=== PATIENT | male | born 1955 | race Caucasian/White ===

== ENCOUNTER → 2022-08-08 13:52 | Outpatient (CLI) | payer OTHER, SELFPAY ==
--- NOTE | 2022-08-08 13:55 | DI.RAD.S_ITS ---
PROCEDURE: XR KNEE LT 3V INDICATIONS: Chronic anterior left knee pain TECHNIQUE: 3 views of the knee were acquired. COMPARISON: None. FINDINGS: Bones: No fractures or dislocations. No suspicious bony lesions. There is mild tricompartmental periarticular osteophyte formation. Soft tissues: No joint effusion. No suspicious soft tissue calcifications. IMPRESSION: Osteoarthritis. No acute fracture. No osseous lesion. If symptoms and/or clinical suspicion for pathology persist, further assessment with repeat, or advanced imaging (e.g., CT, MRI, or bone scan) may be helpful for further assessment. Dictated by: Maxi Goetz M.D. on 08/08/2022 at 14:59 Transcribed by: DILLAN on 08/08/2022 at 14:59 Approved by: Maxi Goetz M.D. on 08/08/2022 at 16:49
== END ==
PROVIDERS: PCP Family Medicine; Referring Provider Family Medicine; Visit Provider Family Medicine
DX: M22.42 Chondromalacia patellae, left knee (principal); M17.12 Unilateral primary osteoarthritis, left knee
CPT/HCPCS: 73562

== ENCOUNTER → 2022-11-03 11:41 | Outpatient (CLI) | payer OTHER, SELFPAY ==
[2022-11-03 13:56] LABS: COVID19 -Nasal RAPID Negative (Negative)
== END ==
PROVIDERS: PCP Family Medicine; Visit Provider Surgery
DX: Z01.812 Encounter for preprocedural laboratory examination (principal); Z20.822 Contact with and (suspected) exposure to COVID-19
CPT/HCPCS: 87635; C9803

== ENCOUNTER 2022-11-04 08:41 | Day surgery (SDC) | payer OTHER, SELFPAY ==
--- NOTE | 2022-11-04 | PATH_ITS ---
[facility] Accession Number: [id number] No. of containers..01 Tissue . 01 Material submitted: . colon - TRANSVERSE 90CM . 01 Diagnosis: Transverse Colon, 90 cm, Biopsy: Tubulovillous adenoma. No evidence of malignancy or high-grade dysplasia. [facility] 11/06/2022 1022 Local . 01 Electronically signed: . Holley Womack MD, Pathologist NPI- [id number] . 01 Gross description: . TRANSVERSE 90CM: Received in formalin are 4 fragment(s) of flores, soft tissue measuring 0.7 x 0.3 x 0.2 cm to 0.2 x 0.2 x 0.1 cm submitted entirely in 1 cassette(s) /CPE 11/05/2022 0947 Local . 01 Pathologist provided ICD-10: D12.3 . 01 CPT . 155740 Specimen Comment: A courtesy copy of this report has been sent to [phone] Performed at: 01 [facility] [address] [place] [address], [place], [place] [id number] MD True Calvillo MD Phone: [phone]
[2022-11-04 09:16] VITALS: BP 138/85; PULSE 100; RESP 24; TEMP 36.1; O2SAT 98; BMI 38.9
[2022-11-04] MEDS: LACTATED RINGERS 1,000 ML 42 ML IV (09:25)
--- NOTE | 2022-11-04 09:46 | P.HP_ITS ---
History of Present Illness History of Present Illness Date Patient Seen: 11/04/22 Time Patient Seen: 09:50 Chief complaint: COLONOSCOPY Narrative: The patient presents for colorectal screening. Last colonoscopy 6 years ago significant for benign polyps.. No personal or family history of colon cancer. On further history denies any recent gastrointestinal symptoms. No nausea, vomiting, abdominal pain, loss of appetite, unexplained weight loss, change in bowel habits, diarrhea, constipation, melena, hematochezia, or bright red blood per rectum. Patient History Medical History Chondromalacia, patella History of colon polyps Hypertension Left knee pain Sprain of right hip Family & Social History Social History: household members spouse Tobacco & Substance use: Smoking Status Former smoker alcohol intake frequency holiday/special occasion Substance Use Type does not use Meds Home Medications and Allergies Home Medications Medication Instructions Recorded Confirmed Type azelastine 137 mcg (0.1 %) nasal 1 spray intranasal BID 05/06/22 11/04/22 History spray aerosol losartan 50 mg tablet 50 mg PO DAILY 05/06/22 11/04/22 History aspirin 81 mg tablet,delayed 81 mg PO DAILY 08/08/22 11/04/22 History release (Adult Low Dose Aspirin) hydrochlorothiazide 25 mg tablet 25 mg PO DAILY #90 tabs 09/25/22 11/04/22 Rx Allergies Allergy/AdvReac Type Severity Reaction Status Date / Time oxycodone Allergy Intermediate skin Verified 11/04/22 09:13 crawling latex Allergy Mild SKIN Verified 11/04/22 09:13 IRRITATION Exam Vital Signs (past 8 hours): - 11/04/22 09:16 Temperature 96.9 F L Pulse Rate 100 H Respiratory Rate 24 Blood Pressure 138/85 Pulse Oximetry 98 Oxygen Delivery Method Room Air Oxygen Delivery Method Room Air Narrative Exam Narrative: General adult male alert oriented no acute distress Assessment & Plan Assessment & Plan narrative: The patient requires colorectal screening and colonoscopy is recommended. Tech nical details were discussed. Risks, benefits, alternatives explained. Risks including but not limited to myocardial infarction, aspiration, bleeding, pain, missed lesion, incomplete examination, need for further radiographic studies, colonic perforation, and need for major abdominal surgery were discussed. All questions were answered to their satisfaction, and they are in agreement with this plan. Time Spent With Patient Critical Care time: I spent a total of [] minutes of critical care time on this patient's care to day; this time is exclusive of procedural time.
--- NOTE | 2022-11-04 10:01 | PM.OP.COLON ---
Operative Date/Time/Diagnoses Date of procedure: 11/04/22 Time of procedure: 10:01 Pre-op diagnosis: Personal history of colonic polyps Post-op diagnosis: same Procedure & Clinicians Study performed: Colonoscopy Same procedure as scheduled: Yes Indications: Personal history of colonic polyps Surgeon: Aiden Hines Procedure Notes Procedure in detail: The history and physical was performed/updated and the patient is ASA class is 2. The procedure was discussed in detail with the patient. Potential risks complications including infection, bleeding, missed diagnosis, perforation, need for surgery, and were explained. Their questions were answered and informed consent was obtained. Patient was brought to the procedure room and placed standard monitoring equipment. The patient's vital signs were monitored continuously throughout the entire procedure. Prior to starting time-out was performed. The patient was placed in the left lateral recumbent position. Procedural sedation was administered by anesthesia. Examination began with a thorough inspection of the perianal area there was no evidence of fissures, fistulae, external hemorrhoids or cutaneous malignancy. The colonoscopy scope was then placed into the anal canal and was advanced to the cecum, which was identified by the ileocecal valve, the appendiceal orifice and the confluence of the taenia. The scope was then slowly withdrawn examining colon thoroughly in all directions, irrigating it of any residual stool. FINDINGS 1. Transverse colon 1 cm flat polyp deep within a mucosal fold removed with hot snare. Base of the polyp could not be entirely removed and will require surveillance. 2 mL of ink were injected into the submucosa distal to the lesion 2. Sigmoid extensive diverticulosis The patient tolerated the procedure well. They will be discharged once criteria are met. The prep was of good/excellent quality. The withdrawl time was 21 minutes. Specimen(s): other (Transverse colonic polyp) Complications: none Post-procedure Recommendations: High fiber diet Plan for aftercare: Follow-up 6 months Disposition: same day surgery
[2022-11-04 10:40] VITALS: BP 124/91; PULSE 109; RESP 25; TEMP 36.1; O2SAT 94
[2022-11-04 10:45] VITALS: BP 126/90; PULSE 111; RESP 17; TEMP 36.1; O2SAT 96
[2022-11-04 10:52] VITALS: BP 126/84; PULSE 101; RESP 18; TEMP 36.2; O2SAT 97
== END 2022-11-04 11:05 | disposition home or self-care (01) ==
PROVIDERS: PCP Family Medicine; Referring Provider Surgery; Visit Provider Surgery
PROC: 0DJD8ZZ Inspection of Lower Intestinal Tract, Via Natural or Artificial Opening Endoscopic (ICD-10-PCS; CPT 45378; principal; 2022-11-04 09:45)
DX: Z12.11 Encounter for screening for malignant neoplasm of colon (principal); Z86.010 Personal history of colon polyps; K57.30 Diverticulosis of large intestine without perforation or abscess without bleeding; D12.3 Benign neoplasm of transverse colon
CPT/HCPCS: 45381; 45385; J2704

== ENCOUNTER → 2022-11-27 07:14 | Outpatient (CLI) | payer OTHER, SELFPAY ==
[2022-11-27 08:46] LABS: Alanine Aminotransferase 25 IU/L (<50); Albumin 4.1 g/dL (3.5-5.0); Albumin Globulin Ratio 1.6 (1.0-2.8); Alkaline Phosphatase 67 U/L (38-126); Aspartate Aminotransferase 23 IU/L (17-59); BUN Creatinine Ratio 25.8 (6-22); Bilirubin Total 0.9 mg/dL (0.2-1.3); Blood Urea Nitrogen 23 mg/dL (9-20); Calcium 9.4 mg/dL (8.4-10.2); Carbon Dioxide 30 mmol/L (22-32); Chloride 98 mmol/L (98-107); Cholesterol 188 mg/dL (140-199); Estimated Glomerular Filt Rate > 60 mL/min (>60); Globulin 2.6 g/dL (1.7-4.1); Glucose 96 mg/dL (80-110); HDL Cholesterol 53 mg/dL (40-60); HEMOLYSIS < 15 (0-50); LDL Cholesterol Calculated 116 mg/dL (<100); Potassium 4.1 mmol/L (3.4-5.1); Sodium 137 mmol/L (137-145); Total Protein 6.7 g/dL (6.3-8.2); Triglycerides 96 mg/dL (35-150)
[2022-11-27 09:18] LABS: Prostate Specific Antigen Scrn 0.945 ng/mL (0.1-4.0)
== END ==
PROVIDERS: PCP Family Medicine; Referring Provider Family Medicine; Visit Provider Family Medicine
DX: Z13.9 Encounter for screening, unspecified (principal); Z12.5 Encounter for screening for malignant neoplasm of prostate
CPT/HCPCS: 36415; 80053; 80061; G0103

== ENCOUNTER → 2023-02-23 07:15 | Outpatient (CLI) | payer OTHER, SELFPAY ==
--- NOTE | 2023-02-23 | DI.CT.S_ITS ---
PROCEDURE: CT SOFT TISSUE NECK WO CON INDICATIONS: Stridor TECHNIQUE: Non-contrast 3.0 mm axial sections acquired from the sella to the aortic arch. Additional oblique axial 3.0 mm sections acquired through the pharynx. 3 mm thick coronal and sagittal reformats were generated. For radiation dose reduction, the following was used: automated exposure control. COMPARISON: None. FINDINGS: Image quality: Excellent. Lymph nodes: No enlarged lymph nodes seen throughout the neck. Vessels: Non-opacified vessels appear normal in caliber. Neck spaces: There is subjective mild thickening of the soft tissues defining the left piriform sinus. The left piriformis sinuses somewhat effaced. The airway is narrowed by a lesion versus mucous which appears to arise from the left side of the larynx at the level of the true and false vocal cords. The vocal cords, false vocal cords, pyriform sinuses, epiglottis, vallecula, and tongue base all appear normal. Extramucosal spaces appear unremarkable. Glands: The parotid and submandibular glands appear normal, without stones. Thyroid gland is unremarkable . Miscellaneous: Visualized brain and orbits appear normal. Lung apices appear clear. Superficial soft tissues appear normal. Severe cervical spondylosis with significant multilevel bilateral bony foraminal narrowing, spanning from C3-C4 through C6-C7. There is canal stenosis at C5-C6. IMPRESSION: 1. Subjective mild thickening of the soft tissues defining the left piriformis sinus. The left piriformis sinus is somewhat effaced. This is of uncertain significance. 2. There is narrowing of the lumen dural airway at the level of the true and false vocal cords from a lesion that appears to arise from the left lateral wall of the larynx. Question mucous versus mass. 3. Severe cervical spondylosis with multilevel bilateral foraminal narrowing and canal stenosis at C5-C6. 4. Otherwise unremarkable noncontrast CT of the soft tissues of the neck. Comment: Recommend direct visualization if this has not yet been performed. Dictated by: Irving Yi M.D. on 02/23/2023 at 11:37 Approved by: Irving Yi M.D. on 02/23/2023 at 11:58
== END ==
PROVIDERS: PCP Family Medicine; Referring Provider Internal Medicine Endocrinology, Diabetes & Metabolism; Visit Provider Internal Medicine Endocrinology, Diabetes & Metabolism
DX: R06.1 Stridor (principal); R06.09 Other forms of dyspnea; M47.812 Spondylosis without myelopathy or radiculopathy, cervical region; M48.02 Spinal stenosis, cervical region
CPT/HCPCS: 70490

== ENCOUNTER 2023-04-28 06:53 | Day surgery (SDC) | payer OTHER, SELFPAY ==
[2023-04-28 07:11] VITALS: BMI 37.8
[2023-04-28] MEDS: LACTATED RINGERS 1,000 ML 200 ML IV (07:16)
[2023-04-28 07:17] VITALS: BP 139/88; PULSE 95; RESP 22; TEMP 35.8; O2SAT 96
--- NOTE | 2023-04-28 07:42 | PM.HP.1 ---
History of Present Illness History of Present Illness Date Patient Seen: 04/28/23 Time Patient Seen: 07:42 Chief complaint: Screening Colonoscopy Narrative: 67-year-old man who had a colonoscopy 6 months which demonstrated a large tubular adenoma transverse colonic polyp which was resected in piecemeal fashion. He is here today for a re-screening to ensure complete polyp resection. [facility] Medical History BPH (benign prostatic hyperplasia) Chondromalacia, patella Chronic stridor History of colon polyps Hypertension Left knee pain Sprain of right hip Social History household members: spouse Smoking Status: Former smoker alcohol intake: current Meds Home Medications and Allergies Home Medications Medication Instructions Recorded Confirmed Type azelastine 137 mcg (0.1 %) nasal 1 spray intranasal BID 05/06/22 04/28/23 History spray aerosol aspirin 81 mg tablet,delayed 81 mg PO DAILY 08/08/22 04/28/23 History release (Adult Low Dose Aspirin) hydrochlorothiazide 25 mg tablet 25 mg PO DAILY #90 tabs 09/25/22 04/28/23 Rx losartan 50 mg tablet 50 mg PO DAILY #90 tabs 01/05/23 04/28/23 Rx tamsulosin 0.4 mg capsule 0.4 mg PO BEDTIME #90 caps 01/20/23 04/28/23 Rx Allergies Allergy/AdvReac Type Severity Reaction Status Date / Time oxycodone Allergy Intermediate skin Verified 04/28/23 07:08 crawling latex Allergy Mild SKIN Verified 04/28/23 07:08 IRRITATION Exam Vital Signs (past 8 hours): - 04/28/23 07:17 Temperature 96.4 F L Pulse Rate 95 H Respiratory Rate 22 Blood Pressure 139/88 Pulse Oximetry 96 Oxygen Delivery Method Room Air Oxygen Delivery Method Room Air Narrative Exam Narrative: General adult man alert oriented no acute distress Abdomen soft nontender nondistended Assessment & Plan Assessment and plan (1) History of colon polyps: Status: Acute Assessment & Plan narrative: 67-year-old man history of tubular adenoma resected in piecemeal fashion 6 months ago here today for recheck to ensure complete colonic excision. Overview of the operation was discussed. Operative risks hemorrhage, intestinal injury, missed diagnosis were discussed. Questions have been answered he is in agreement with this plan
--- NOTE | 2023-04-28 07:45 | PM.OP.COLON ---
Operative Date/Time/Diagnoses Date of procedure: 04/28/23 Time of procedure: 08:12 Pre-op diagnosis: Personal history of colonic polyp Post-op diagnosis: same Procedure & Clinicians Study performed: Colonoscopy Same procedure as scheduled: Yes Indications: 67-year-old man had a piecemeal resection of a large tubular adenoma 6 months ago here for re-evaluation to ensure complete polyp resection Procedure Notes Procedure in detail: The history and physical was performed/updated and the patient is ASA class is 2. The procedure was discussed in detail with the patient. Potential risks complications including infection, bleeding, missed diagnosis, perforation, need for surgery, and were explained. Their questions were answered and informed consent was obtained. Patient was brought to the procedure room and placed standard monitoring equipment. The patient's vital signs were monitored continuously throughout the entire procedure. Prior to starting time-out was performed. The patient was placed in the left lateral recumbent position. Procedural sedation was administered by anesthesia. Examination began with a thorough inspection of the perianal area there was no evidence of fissures, fistulae, external hemorrhoids or cutaneous malignancy. The colonoscopy scope was then placed into the anal canal and was advanced to the cecum, which was identified by the ileocecal valve, the appendiceal orifice and the confluence of the taenia. The scope was then slowly withdrawn examining colon thoroughly in all directions, irrigating it of any residual stool. No masses or polyps within the colon. Sigmoid diverticulosis The patient tolerated the procedure well. They will be discharged once criteria are met. The prep was of good/excellent quality. The withdrawl time was 7 minutes. Impression: No residual polyp Post-procedure Recommendations: Colonoscopy in 5 years Disposition: same day surgery
[2023-04-28 08:08] VITALS: BP 147/101; PULSE 89; RESP 23; TEMP 36.4; O2SAT 96
[2023-04-28 08:13] VITALS: BP 134/100; PULSE 85; RESP 14; O2SAT 94
[2023-04-28 08:19] VITALS: BP 136/100; PULSE 89; RESP 12; O2SAT 94
[2023-04-28 08:21] VITALS: BP 130/96; PULSE 88; RESP 10; TEMP 36.5; O2SAT 94
== END 2023-04-28 08:34 | disposition home or self-care (01) ==
PROVIDERS: PCP Family Medicine; Referring Provider Surgery; Visit Provider Surgery
PROC: 0DJD8ZZ Inspection of Lower Intestinal Tract, Via Natural or Artificial Opening Endoscopic (ICD-10-PCS; CPT 45378; principal; 2023-04-28 07:45)
DX: Z12.11 Encounter for screening for malignant neoplasm of colon (principal); Z86.010 Personal history of colon polyps; K57.30 Diverticulosis of large intestine without perforation or abscess without bleeding
CPT/HCPCS: 45378

== ENCOUNTER → 2023-07-07 06:43 | Outpatient (CLI) | payer OTHER, SELFPAY ==
--- NOTE | 2023-07-07 06:44 | DI.US.S_ITS ---
PROCEDURE: US ABD AORTA ANEURYSM SCREEN INDICATIONS: Screening TECHNIQUE: Real time scanning was performed of the aorta and iliac arteries, with image documentation. COMPARISON: None. FINDINGS: Aorta: Proximal aortic diameter measures 2.7 cm. Mid-aorta measures 2.0 cm. Distal aortic diameter is 1.9 cm. Iliac arteries: Right common iliac artery measures 1.5 cm. Left common iliac artery measures 1.3 cm. IMPRESSION: No abdominal aortic aneurysm. Proximal ectatic portion. Consider 5 year follow-up. Dictated by: Alex Lockett M.D. on 07/07/2023 at 9:49 Approved by: Alex Lockett M.D. on 07/07/2023 at 9:50
== END ==
PROVIDERS: PCP Family Medicine; Referring Provider Family Medicine; Visit Provider Family Medicine
DX: Z13.6 Encounter for screening for cardiovascular disorders (principal); I10 Essential (primary) hypertension; Z87.891 Personal history of nicotine dependence
CPT/HCPCS: 76706

== ENCOUNTER → 2023-09-18 07:51 | Outpatient (CLI) | payer OTHER, SELFPAY ==
[2023-09-18 08:53] LABS: Add Manual Diff / Slide Review NO; Basophils Absolute Auto 100 /uL (0-100); Basophils Percent Auto 0.8 % (0-2); Eosinophils Absolute Auto 200 /uL (0-450); Eosinophils Percent Auto 3.3 % (2-4); Hematocrit 45.6 % (41-53); Hemoglobin 15.9 g/dL (13.5-17.5); Lymphocytes Absolute Auto 1700 /uL (1100-4500); Lymphocytes Percent Auto 27.5 % (25-40); Mean Corpuscular HGB Conc 34.9 % (30-36); Mean Corpuscular Hemoglobin 31.3 PG (26-34); Mean Corpuscular Volume 89.6 fL (80-100); Monocytes Absolute Auto 500 /uL (0-900); Monocytes Percent Auto 7.9 % (3-14); Neutrophils Absolute Auto 3800 /uL (1500-7000); Neutrophils Percent Auto 60.5 % (50-75); Platelet Count 285 X10^3/uL (150-400); White Blood Cell Count 6.3 X10^3/uL (4.5-11.0)
[2023-09-18 09:21] LABS: Alanine Aminotransferase 26 IU/L (<50); Albumin Globulin Ratio 1.5 (1.0-2.8); Alkaline Phosphatase 65 U/L (38-126); Aspartate Aminotransferase 23 IU/L (17-59); BUN Creatinine Ratio 25.3 (6-22); Bilirubin Total 0.6 mg/dL (0.2-1.3); Blood Urea Nitrogen 23 mg/dL (9-20); Calcium 9.1 mg/dL (8.4-10.2); Carbon Dioxide 25 mmol/L (22-32); Chloride 101 mmol/L (98-107); Estimated Glomerular Filt Rate > 60 mL/min (>60); Globulin 2.7 g/dL (1.7-4.1); Glucose 104 mg/dL (80-110); HEMOLYSIS < 15 (0-50); Potassium 4.1 mmol/L (3.4-5.1); Sodium 134 mmol/L (137-145); Total Protein 6.7 g/dL (6.3-8.2)
[2023-09-18 09:47] LABS: Prostate Specific Antigen Scrn 0.784 ng/mL (0.1-4.0)
== END ==
PROVIDERS: PCP Family Medicine; Referring Provider Family Medicine; Visit Provider Family Medicine
DX: N40.0 Benign prostatic hyperplasia without lower urinary tract symptoms (principal); I10 Essential (primary) hypertension; Z12.5 Encounter for screening for malignant neoplasm of prostate
CPT/HCPCS: 36415; 80053; 85025; G0103

== ENCOUNTER 2024-07-26 08:15 | Outpatient (RCR) | payer OTHER, SELFPAY ==
--- NOTE | 2024-04-12 12:06 | PT.OPPOC ---
Physical, Occupational & Speech Therapy At [facility] Current Diagnoses Pain in right hip (04/12/24) Pain in right thigh (04/12/24) Pain in left thigh (04/12/24) Visit Care Team Role Provider Type Danny Marti DO Attending Provider Physician Family Provider Primary Care Provider Referring Provider Specialty: Family Practice Address: [address] [place] [address], [facility] Email: [email or web address] Plan Of Care PT-OP-T Assessment and Plan Start: 04/11/24 13:35 Freq: Status: Active Protocol: Document 04/12/24 07:25 MB (Rec: 04/12/24 08:02 MB [id number]) Physical Therapy Assessment Rehab Potential Rehabilitation Potential Fair Evaluation Complexity Number of Personal Factors/Comorbidities 1-2 Number of Body Systems Impaired 3 Clinical Presentation at Evaluation Evolving Impairments Impairments Activity Tolerance,Balance, Functional Activities, Functional Mobility,Gait,Pain, Posture,ROM,Soft Tissue Mobility,Strength Goals 3 Impairment Lack of PT HEP Ointment Mill Tender Goal (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 LTG Duration 8 weeks 2 Impairment Decreased right hip strength Senior Living Goal (LTG) Pt will present with 5/5 right hip flexion and abduction strength to improve functional strength, balance and gait. LTG Duration 8 weeks 1 Impairment LEF score is 39/80 Ointment Mill Tender Goal (LTG) Pt will present with improved LEF score to no more than 20/ 80 to reflect improved pain and function. LTG Duration 8 weeks Assessment Summary Assessment Pt is a 68 y/o male who reports significant lateral right hip, quad and hamstring discomfort after two trail bike rides. 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 He verbalizes that he does not get up as often as he should during long work days and he is mostly sitting. Standing posture reveals increased body mass, anterior tilt pelvis, pelvic obliquities with right iliac crest higher than the left and supine posture reveals neither posterior leg touching the mat. Scour right hip is negative and has mildly less passive right hip IR compared to left but overall, his passive hip movement is not very limited. He is minor right hip flexion and abduction MMT changes and c/o lateral right hip pain near insertion of TFL and ITB with MMT right hip and knee. Pt will benefit from PT to improve pelvic alignment, flexibility, strength and balance. Of note, pt has aqua ablation scheduled on 05/03/24 and unsure what surgeon will allow post-op as far as PT. PT ed pt that this PT is not a pelvic floor PT and that this may be beneficial in the future. Pt is going to call surgeon about post-procedure recommendations. Physical Therapy Plan Frequency and Duration Frequency of Treatment 1-2x/wk Duration of treatment (weeks) 8 Plan of Care Start Date 04/12/24 Plan of Care End Date 06/12/24 Therapeutic Interventions Therapeutic Interventions Balance Training,Canalithic Repositioning,Gait Training, Home Exercise Program,Joint Mobilizations,Manual Therapy, Neuromuscular Re-education, Patient/Caregiver Education, Self-Care/Home Management, Sensory Integration,Soft Tissue Mobilization,Taping, Therapeutic Activities, Therapeutic Exercises Modalities Cold Pack/Ice Massage,Electric Stimulation,Hot Packs, Ultrasound Next Visit Focus/Plan Next Note Type Treatment Note Next Visit Plan Review pelvic realignment exercises, B[place]yko breathing, progressive flexibility Plan of Care Dates Plan of Care Start Date 04/12/24 Plan of Care End Date 06/12/24 Electronically Signed by: Claudia Acevedo PT 04/12/24 7001 If you are in agreement with this Plan of Care, please return a signed and dated copy. I have reviewed this Plan of Care and certify that the skilled therapy services above are required to meet the patient?s needs. Physician Signature Date Printed Name and Credentials Clinical Instructor Signature Printed Name and Credentials
--- NOTE | 2024-04-12 12:06 | PT.OIE ---
Current Diagnoses Pain in right hip (04/12/24) Pain in right thigh (04/12/24) Pain in left thigh (04/12/24) Past Medical History (Last Updated 03/29/24 @ 15:41 by Jaime Mcneill MD) Achilles tendinitis of left lower extremity Benign prostatic hyperplasia with lower urinary tract symptoms BPH (benign prostatic hyperplasia) Chondromalacia, patella Chronic stridor Colon polyps History of colon polyps History of IHSS Hypertension Left knee pain Nocturia more than twice per night Secondhand smoke exposure Skin abnormalities Slow urinary stream Sprain of right hip Weak urinary stream Well adult exam Past Surgical History (Last Updated 03/29/24 @ 15:41 by Jaime Mcneill MD) Status post inguinal ligation of varicocele Visit Care Team Role Provider Type Danny Marti DO Attending Provider Physician Family Provider Primary Care Provider Referring Provider Specialty: Family Practice Address: [address] [place] [address], [facility] Email: [email or web address] Physical Therapy Initial Evaluation PT-OP-A Visit Information Start: 04/11/24 13:35 Freq: Status: Active Protocol: Document 04/12/24 07:25 MB (Rec: 04/12/24 08:02 MB [id number]) Out-Patient Physical Therapy Visit Information Visit Information Visit Type Initial Evaluation Visit Note Gonzales, 11/25 before prog note or by 05/13/24 15 visits for this referral Visit Start Time 07:25 Visit Stop Time 08:10 Visit Number 1 Number of MENTAL HEALTH ASSISTANT Visits 0 Evaluation Information Evaluation Date 04/12/24 PT-OP-B Current Condition Start: 04/11/24 13:35 Freq: Status: Active Protocol: Document 04/12/24 07:25 MB (Rec: 04/12/24 08:02 MB [id number]) Current Condition History of Current Condition Onset Date 03/19/24 Current Complaints [place] in [place], got right hip pain History of Current Condition Pt reports that he was trail riding and he got increased pain. His long-term goal is flexibility and strength. He would like to get back to ball room dancing. 10 years ago, he had a partiall achilles tear. He was carrying suitcases up the stairs and it tore. He did not have surgery , he was put in a boot and then had an extensive course of PT. 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 He had a special laser procedure for this 1 year ago. He could not exert himself a lot until he had surgery. He has been biking once a week in the winter and 3x/wk in the summer and he likes downhill skiing as well. Pt with BPH and urinary symptoms and he is currently being treated for this. He has not yet received pelvic floor PT. He has aqua ablation on . He was told not to bike for 6 weeks after and no heavy lifting for two weeks. Pt reports 6/10 lateral and anterior right hip pain and 4/ 10 posterolateral right hip pain over hamstrings. He reports anterior right leg pain feels like the quads. He reports that after second bike ride, he couldn't walk because hip couldn't bear weight. Pt presents with wet vocal tone. 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 Pt denies numbness and tingling. Pt sleeps badly. He has a foam mattress. He has a jasson size bed and sleeps with . He wakes up 2-3x/night to urinate. PT-OP-C Subjective Start: 04/11/24 13:35 Freq: Status: Active Protocol: Document 04/12/24 07:25 MB (Rec: 04/12/24 08:02 MB [id number]) OP-PT Subjective Patient Comments Patient Comments Decrease acute pain and for the long-term, improve flexibility and strength Patient Questionnaires Lower Extremity Functional Scale LEFS Score 39 LEFS Impairment 40 to 59% Impaired (Score 32- 47) PT-OP-G Mobility & Gait Start: 04/11/24 13:35 Freq: Status: Active Protocol: Document 04/12/24 07:25 MB (Rec: 04/12/24 08:02 MB [id number]) OP Gait Assessment Comments Gait Comments Decreased step-length and hip movement right leg with gait, antalgic gait and decreased right hip flexion PT-OP-J Posture/Palpation/Skin Start: 04/11/24 13:35 Freq: Status: Active Protocol: Document 04/12/24 07:25 MB (Rec: 04/12/24 08:02 MB [id number]) Posture Evaluation Comments Posture Comments Standing posture: forward flexion at hips, rounded shoulders, flat spine, mild convexity or hypertrophy to the right in lumbar area, right iliac crest is higher than the left. More overpronation left foot than the right in standing and increased Azael angle on the right compared to left. Anterior tilt pelvis and increased abdominal distention forward. In supine, neither posterior knee/leg touch the mat and this may be d/t a combination of anterior pelvis, knee degenerative changes and hips, pt reports discomfort lateral hip. B SLR grossly 60 deg. PT-OP-K Range of Motion Start: 04/11/24 13:35 Freq: Status: Active Protocol: Document 04/12/24 07:25 MB (Rec: 04/12/24 12:05 MB [id number]) Hip Goniometric Range of Motion Hip ROM Limitations Comments Supine passive hip ER and IR normal on the left and mildly reduced passive IR on the right Scour right is negative Knee Goniometric Range of Motion Knee ROM Limitations Comments Pt may have some degenerative changes in B knees vs anterior tilt pelvis as neither posterior leg touches the legs in supine PT-OP-M Strength Start: 04/11/24 13:35 Freq: Status: Active Protocol: Document 04/12/24 07:25 MB (Rec: 04/12/24 12:05 MB [id number]) Hip Strength Hip Manual Muscle Testing Left Flexion (L2) 5 Normal Extension (S1) 5 Normal Abduction 5 Normal Right Flexion (L2) 4+ Good+ Extension (S1) 5 Normal Abduction 4+ Good+ Comments Right hip lateral pain with MMT Knee Strength Knee Manual Muscle Testing Bilateral Flexion (S2) 5 Normal Extension (L3) 5 Normal Comments Right hip lateral pain with MMT extension Ankle/Foot Strength Ankle and Foot Manual Muscle Testing Bilateral Dorsiflexion (L4) 5 Normal Toe Strength Toe Manual Muscle Testing Left Great Toe Extension 5 Normal Right Great Toe Extension 5 Normal PT-OP-Q Treatments Start: 04/11/24 13:35 Freq: Status: Active Protocol: Document 04/12/24 07:25 MB (Rec: 04/12/24 12:05 MB [id number]) Therapeutic Exercises Supine Exercises Pelvic realignment exercises Side bilateral Equipment Used Blue ball Reps/Minutes 5 reps, 3 sec hold all exercises in order Comments Feet together ball squeeze iso , knee opp ankle iso, knee press down iso Self-Care/Home Management Treatment Education Patient Education Body Mechanics,Home Exercise Program,Joint Protection,Pain Management,Posture Other Education Ed pt in log roll technique, use of pillow under knees for supine lying and sleeping and between knees for side lying, ed pt in benefits of icing and to consider walking rather than bike riding at this time, ed pt to consider sit to stand desk/changing desk ergonomics at home and to get up more regularly PT-OP-T Assessment and Plan Start: 04/11/24 13:35 Freq: Status: Active Protocol: Document 04/12/24 07:25 MB (Rec: 04/12/24 08:02 MB [id number]) Physical Therapy Assessment Rehab Potential Rehabilitation Potential Fair Evaluation Complexity Number of Personal Factors/Comorbidities 1-2 Number of Body Systems Impaired 3 Clinical Presentation at Evaluation Evolving Impairments Impairments Activity Tolerance,Balance, Functional Activities, Functional Mobility,Gait,Pain, Posture,ROM,Soft Tissue Mobility,Strength Goals 3 Impairment Lack of PT HEP Usp Goal (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 LTG Duration 8 weeks 2 Impairment Decreased right hip strength Usp Goal (LTG) Pt will present with 5/5 right hip flexion and abduction strength to improve functional strength, balance and gait. LTG Duration 8 weeks 1 Impairment LEF score is 39/80 Senior Marketing Manager Goal (LTG) Pt will present with improved LEF score to no more than 20/ 80 to reflect improved pain and function. LTG Duration 8 weeks Assessment Summary Assessment Pt is a 68 y/o male who reports significant lateral right hip, quad and hamstring discomfort after two trail bike rides. 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 He verbalizes that he does not get up as often as he should during long work days and he is mostly sitting. Standing posture reveals increased body mass, anterior tilt pelvis, pelvic obliquities with right iliac crest higher than the left and supine posture reveals neither posterior leg touching the mat. Scour right hip is negative and has mildly less passive right hip IR compared to left but overall, his passive hip movement is not very limited. He is minor right hip flexion and abduction MMT changes and c/o lateral right hip pain near insertion of TFL and ITB with MMT right hip and knee. Pt will benefit from PT to improve pelvic alignment, flexibility, strength and balance. Of note, pt has aqua ablation scheduled on 05/03/24 and unsure what surgeon will allow post-op as far as PT. PT ed pt that this PT is not a pelvic floor PT and that this may be beneficial in the future. Pt is going to call surgeon about post-procedure recommendations. Physical Therapy Plan Frequency and Duration Frequency of Treatment 1-2x/wk Duration of treatment (weeks) 8 Plan of Care Start Date 04/12/24 Plan of Care End Date 06/12/24 Therapeutic Interventions Therapeutic Interventions Balance Training,Canalithic Repositioning,Gait Training, Home Exercise Program,Joint Mobilizations,Manual Therapy, Neuromuscular Re-education, Patient/Caregiver Education, Self-Care/Home Management, Sensory Integration,Soft Tissue Mobilization,Taping, Therapeutic Activities, Therapeutic Exercises Modalities Cold Pack/Ice Massage,Electric Stimulation,Hot Packs, Ultrasound Next Visit Focus/Plan Next Note Type Treatment Note Next Visit Plan Review pelvic realignment exercises, Buteyko breathing, progressive flexibility
--- NOTE | 2024-04-26 08:14 | PT.OTN ---
Current Diagnoses Pain in right hip (04/26/24) Pain in right thigh (04/26/24) Pain in left thigh (04/26/24) Physical Therapy Treatment Note PT-OP-A Visit Information Start: 04/11/24 13:35 Freq: Status: Active Protocol: Document 04/26/24 07:33 MB (Rec: 04/26/24 08:13 MB [id number]) Out-Patient Physical Therapy Visit Information Visit Information Visit Type Treatment Note Visit Note Christian, 12/26 before prog note or by 05/13/24 15 visits for this referral Visit Start Time 07:33 Visit Stop Time 08:13 Visit Number 2 Number of REAL ESTATE AGENCY LICENSEE Visits 0 Evaluation Information Evaluation Date 04/12/24 Precautions Precautions Possible aqua ablation for BPH 05/03/24. Surgeon said he can con't with PT afterwards and should not bike for 6 weeks. PT will do re-eval on 05/17/24 if he undergoes procedure. PT-OP-B Current Condition Start: 04/11/24 13:35 Freq: Status: Active Protocol: Document 04/12/24 07:25 MB (Rec: 04/12/24 08:02 MB [id number]) Current Condition History of Current Condition Onset Date 03/19/24 Current Complaints [place] in [place], got right hip pain History of Current Condition Pt reports that he was trail riding and he got increased pain. His long-term goal is flexibility and strength. He would like to get back to [employer] room dancing. 10 years ago, he had a partiall achilles tear. He was carrying suitcases up the stairs and it tore. He did not have surgery , he was put in a boot and then had an extensive course of PT. 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 He had a special laser procedure for this 1 year ago. He could not exert himself a lot until he had surgery. He has been biking once a week in the winter and 3x/wk in the summer and he likes downhill skiing as well. Pt with BPH and urinary symptoms and he is currently being treated for this. He has not yet received pelvic floor PT. He has aqua ablation on . He was told not to bike for 6 weeks after and no heavy lifting for two weeks. Pt reports 6/10 lateral and anterior right hip pain and 4/ 10 posterolateral right hip pain over hamstrings. He reports anterior right leg pain feels like the quads. He reports that after second bike ride, he couldn't walk because hip couldn't bear weight. Pt presents with wet vocal tone. 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 Pt denies numbness and tingling. Pt sleeps badly. He has a foam mattress. He has a jasson size bed and sleeps with . He wakes up 2-3x/night to urinate. PT-OP-C Subjective Start: 04/11/24 13:35 Freq: Status: Active Protocol: Document 04/26/24 07:33 MB (Rec: 04/26/24 08:13 MB [id number]) OP-PT Subjective Patient Comments Patient Comments Pt has been resting off the bike since evaluation. He has been doing pelvic realignment exercises and walking. He is appealing deny for aqua ablation for BPH that would happen next week. Surgeon said he can con't with PT afterwards and should not bike for 6 weeks. PT-OP-G Mobility & Gait Start: 04/11/24 13:35 Freq: Status: Active Protocol: Document 04/12/24 07:25 MB (Rec: 04/12/24 08:02 MB [id number]) OP Gait Assessment Comments Gait Comments Decreased step-length and hip movement right leg with gait, antalgic gait and decreased right hip flexion PT-OP-J Posture/Palpation/Skin Start: 04/11/24 13:35 Freq: Status: Active Protocol: Document 04/12/24 07:25 MB (Rec: 04/12/24 08:02 MB [id number]) Posture Evaluation Comments Posture Comments Standing posture: forward flexion at hips, rounded shoulders, flat spine, mild convexity or hypertrophy to the right in lumbar area, right iliac crest is higher than the left. More overpronation left foot than the right in standing and increased Azael angle on the right compared to left. Anterior tilt pelvis and increased abdominal distention forward. In supine, neither posterior knee/leg touch the mat and this may be d/t a combination of anterior pelvis, knee degenerative changes and hips, pt reports discomfort lateral hip. B SLR grossly 60 deg. PT-OP-K Range of Motion Start: 04/11/24 13:35 Freq: Status: Active Protocol: Document 04/12/24 07:25 MB (Rec: 04/12/24 12:05 MB [id number]) Hip Goniometric Range of Motion Hip ROM Limitations Comments Supine passive hip ER and IR normal on the left and mildly reduced passive IR on the right Scour right is negative Knee Goniometric Range of Motion Knee ROM Limitations Comments Pt may have some degenerative changes in B knees vs anterior tilt pelvis as neither posterior leg touches the legs in supine PT-OP-M Strength Start: 04/11/24 13:35 Freq: Status: Active Protocol: Document 04/12/24 07:25 MB (Rec: 04/12/24 12:05 MB [id number]) Hip Strength Hip Manual Muscle Testing Left Flexion (L2) 5 Normal Extension (S1) 5 Normal Abduction 5 Normal Right Flexion (L2) 4+ Good+ Extension (S1) 5 Normal Abduction 4+ Good+ Comments Right hip lateral pain with MMT Knee Strength Knee Manual Muscle Testing Bilateral Flexion (S2) 5 Normal Extension (L3) 5 Normal Comments Right hip lateral pain with MMT extension Ankle/Foot Strength Ankle and Foot Manual Muscle Testing Bilateral Dorsiflexion (L4) 5 Normal Toe Strength Toe Manual Muscle Testing Left Great Toe Extension 5 Normal Right Great Toe Extension 5 Normal PT-OP-Q Treatments Start: 04/11/24 13:35 Freq: Status: Active Protocol: Document 04/26/24 07:33 MB (Rec: 04/26/24 08:13 MB [id number]) Therapeutic Exercises Supine Exercises Hip flexor and quad stretches Comments B with opposite leg to chest and increased tension on right , changed to HS Hamstring stretch with MWM Comments B 30 sec with gentle flexion and extension Pelvic realignment exercises Side bilateral Equipment Used Blue ball Reps/Minutes 5 reps, 3 sec hold all exercises in order Comments Feet together ball squeeze iso , knee opp ankle iso, knee press down iso Manual Therapy Treatment Other Other Manual Treatments Pt supine with head and legs supported: PT-OP-T Assessment and Plan Start: 04/11/24 13:35 Freq: Status: Active Protocol: Document 04/26/24 07:33 MB (Rec: 04/26/24 08:13 MB [id number]) Physical Therapy Assessment Rehab Potential Rehabilitation Potential Fair Evaluation Complexity Number of Personal Factors/Comorbidities 1-2 Number of Body Systems Impaired 3 Clinical Presentation at Evaluation Evolving Impairments Impairments Activity Tolerance,Balance, Functional Activities, Functional Mobility,Gait,Pain, Posture,ROM,Soft Tissue Mobility,Strength Goals 3 Impairment Lack of PT HEP Detention Goal (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 LTG Duration 8 weeks 2 Impairment Decreased right hip strength Detention Goal (LTG) Pt will present with 5/5 right hip flexion and abduction strength to improve functional strength, balance and gait. LTG Duration 8 weeks 1 Impairment LEF score is 39/80 Detention Goal (LTG) Pt will present with improved LEF score to no more than 20/ 80 to reflect improved pain and function. LTG Duration 8 weeks Assessment Summary Assessment Pt reports sub epiglottis is closing again after procedure a year ago and this affects his breathing. He follows up with doctor this month. He may have BPH procedure next week and will do a re-eval after if he does. Progressed flexibility today. Physical Therapy Plan Frequency and Duration Frequency of Treatment 1-2x/wk Duration of treatment (weeks) 8 Plan of Care Start Date 04/12/24 Plan of Care End Date 06/12/24 Therapeutic Interventions Therapeutic Interventions Balance Training,Canalithic Repositioning,Gait Training, Home Exercise Program,Joint Mobilizations,Manual Therapy, Neuromuscular Re-education, Patient/Caregiver Education, Self-Care/Home Management, Sensory Integration,Soft Tissue Mobilization,Taping, Therapeutic Activities, Therapeutic Exercises Modalities Cold Pack/Ice Massage,Electric Stimulation,Hot Packs, Ultrasound Next Visit Focus/Plan Next Note Type Treatment Note Next Visit Plan Review previous exercises, HEP and ongoing gentle manual, consider doorway stretch for hip flexor, TFL and QL d/t lateralis and ITB tension Buteyko breathing with primary PT, progressive flexibility, strengthening and balance: start gently, one to two exercises only added per treatment. Core progression to include pelvic tilt with abd drawing in, knees side to side , HS heel down (no leg lift), knee fall out, possible bridge , mini january
--- NOTE | 2024-04-26 08:43 | PT.OTN ---
Current Diagnoses Pain in right hip (04/26/24) Pain in right thigh (04/26/24) Pain in left thigh (04/26/24) Physical Therapy Treatment Note PT-OP-A Visit Information Start: 04/11/24 13:35 Freq: Status: Active Protocol: Document 04/26/24 07:33 MB (Rec: 04/26/24 08:13 MB [id number]) Out-Patient Physical Therapy Visit Information Visit Information Visit Type Treatment Note Visit Note Christian, 12/26 before prog note or by 05/13/24 15 visits for this referral Visit Start Time 07:33 Visit Stop Time 08:13 Visit Number 2 Number of AUTOMOTIVE INTERNET SALES MANAGER Visits 0 Evaluation Information Evaluation Date 04/12/24 Precautions Precautions Possible aqua ablation for BPH 05/03/24. Surgeon said he can con't with PT afterwards and should not bike for 6 weeks. PT will do re-eval on 05/17/24 if he undergoes procedure. PT-OP-B Current Condition Start: 04/11/24 13:35 Freq: Status: Active Protocol: Document 04/12/24 07:25 MB (Rec: 04/12/24 08:02 MB [id number]) Current Condition History of Current Condition Onset Date 03/19/24 Current Complaints [place] riding in [place], got right hip pain History of Current Condition Pt reports that he was trail riding and he got increased pain. His long-term goal is flexibility and strength. He would like to get back to [employer] room dancing. 10 years ago, he had a partiall achilles tear. He was carrying suitcases up the stairs and it tore. He did not have surgery , he was put in a boot and then had an extensive course of PT. 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 He had a special laser procedure for this 1 year ago. He could not exert himself a lot until he had surgery. He has been biking once a week in the winter and 3x/wk in the summer and he likes downhill skiing as well. Pt with BPH and urinary symptoms and he is currently being treated for this. He has not yet received pelvic floor PT. He has aqua ablation on . He was told not to bike for 6 weeks after and no heavy lifting for two weeks. Pt reports 6/10 lateral and anterior right hip pain and 4/ 10 posterolateral right hip pain over hamstrings. He reports anterior right leg pain feels like the quads. He reports that after second bike ride, he couldn't walk because hip couldn't bear weight. Pt presents with wet vocal tone. 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 Pt denies numbness and tingling. Pt sleeps badly. He has a foam mattress. He has a jasson size bed and sleeps with . He wakes up 2-3x/night to urinate. PT-OP-C Subjective Start: 04/11/24 13:35 Freq: Status: Active Protocol: Document 04/26/24 07:33 MB (Rec: 04/26/24 08:13 MB [id number]) OP-PT Subjective Patient Comments Patient Comments Pt has been resting off the bike since evaluation. He has been doing pelvic realignment exercises and walking. He is appealing deny for aqua ablation for BPH that would happen next week. Surgeon said he can con't with PT afterwards and should not bike for 6 weeks. PT-OP-G Mobility & Gait Start: 04/11/24 13:35 Freq: Status: Active Protocol: Document 04/12/24 07:25 MB (Rec: 04/12/24 08:02 MB [id number]) OP Gait Assessment Comments Gait Comments Decreased step-length and hip movement right leg with gait, antalgic gait and decreased right hip flexion PT-OP-J Posture/Palpation/Skin Start: 04/11/24 13:35 Freq: Status: Active Protocol: Document 04/12/24 07:25 MB (Rec: 04/12/24 08:02 MB [id number]) Posture Evaluation Comments Posture Comments Standing posture: forward flexion at hips, rounded shoulders, flat spine, mild convexity or hypertrophy to the right in lumbar area, right iliac crest is higher than the left. More overpronation left foot than the right in standing and increased Azael angle on the right compared to left. Anterior tilt pelvis and increased abdominal distention forward. In supine, neither posterior knee/leg touch the mat and this may be d/t a combination of anterior pelvis, knee degenerative changes and hips, pt reports discomfort lateral hip. B SLR grossly 60 deg. PT-OP-K Range of Motion Start: 04/11/24 13:35 Freq: Status: Active Protocol: Document 04/12/24 07:25 MB (Rec: 04/12/24 12:05 MB [id number]) Hip Goniometric Range of Motion Hip ROM Limitations Comments Supine passive hip ER and IR normal on the left and mildly reduced passive IR on the right Scour right is negative Knee Goniometric Range of Motion Knee ROM Limitations Comments Pt may have some degenerative changes in B knees vs anterior tilt pelvis as neither posterior leg touches the legs in supine PT-OP-M Strength Start: 04/11/24 13:35 Freq: Status: Active Protocol: Document 04/12/24 07:25 MB (Rec: 04/12/24 12:05 MB [id number]) Hip Strength Hip Manual Muscle Testing Left Flexion (L2) 5 Normal Extension (S1) 5 Normal Abduction 5 Normal Right Flexion (L2) 4+ Good+ Extension (S1) 5 Normal Abduction 4+ Good+ Comments Right hip lateral pain with MMT Knee Strength Knee Manual Muscle Testing Bilateral Flexion (S2) 5 Normal Extension (L3) 5 Normal Comments Right hip lateral pain with MMT extension Ankle/Foot Strength Ankle and Foot Manual Muscle Testing Bilateral Dorsiflexion (L4) 5 Normal Toe Strength Toe Manual Muscle Testing Left Great Toe Extension 5 Normal Right Great Toe Extension 5 Normal PT-OP-Q Treatments Start: 04/11/24 13:35 Freq: Status: Active Protocol: Document 04/26/24 07:33 MB (Rec: 04/26/24 08:13 MB [id number]) Therapeutic Exercises Supine Exercises Hip flexor and quad stretches Comments B with opposite leg to chest and increased tension on right , changed to HS Hamstring stretch with MWM Comments B 30 sec with gentle flexion and extension Pelvic realignment exercises Side bilateral Equipment Used Blue ball Reps/Minutes 5 reps, 3 sec hold all exercises in order Comments Feet together ball squeeze iso , knee opp ankle iso, knee press down iso Manual Therapy Treatment Other Other Manual Treatments Pt supine with head and legs supported: STM and positional release right greater than left vastus lateralis and also right TFL, hip rotators PT-OP-T Assessment and Plan Start: 04/11/24 13:35 Freq: Status: Active Protocol: Document 04/26/24 07:33 MB (Rec: 04/26/24 08:13 MB [id number]) Physical Therapy Assessment Rehab Potential Rehabilitation Potential Fair Evaluation Complexity Number of Personal Factors/Comorbidities 1-2 Number of Body Systems Impaired 3 Clinical Presentation at Evaluation Evolving Impairments Impairments Activity Tolerance,Balance, Functional Activities, Functional Mobility,Gait,Pain, Posture,ROM,Soft Tissue Mobility,Strength Goals 3 Impairment Lack of PT HEP Nursing Home Goal (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 LTG Duration 8 weeks 2 Impairment Decreased right hip strength Nursing Home Goal (LTG) Pt will present with 5/5 right hip flexion and abduction strength to improve functional strength, balance and gait. LTG Duration 8 weeks 1 Impairment LEF score is 39/80 Nursing Home Goal (LTG) Pt will present with improved LEF score to no more than 20/ 80 to reflect improved pain and function. LTG Duration 8 weeks Assessment Summary Assessment Pt reports sub epiglottis is closing again after procedure a year ago and this affects his breathing. He follows up with doctor this month. He may have BPH procedure next week and will do a re-eval after if he does. Progressed flexibility today. Physical Therapy Plan Frequency and Duration Frequency of Treatment 1-2x/wk Duration of treatment (weeks) 8 Plan of Care Start Date 04/12/24 Plan of Care End Date 06/12/24 Therapeutic Interventions Therapeutic Interventions Balance Training,Canalithic Repositioning,Gait Training, Home Exercise Program,Joint Mobilizations,Manual Therapy, Neuromuscular Re-education, Patient/Caregiver Education, Self-Care/Home Management, Sensory Integration,Soft Tissue Mobilization,Taping, Therapeutic Activities, Therapeutic Exercises Modalities Cold Pack/Ice Massage,Electric Stimulation,Hot Packs, Ultrasound Next Visit Focus/Plan Next Note Type Treatment Note Next Visit Plan Review previous exercises, HEP and ongoing gentle manual, consider doorway stretch for hip flexor, TFL and QL d/t lateralis and ITB tension Buteyko breathing with primary PT, progressive flexibility, strengthening and balance: start gently, one to two exercises only added per treatment. Core progression to include pelvic tilt with abd drawing in, knees side to side , HS heel down (no leg lift), knee fall out, possible bridge , mini january
--- NOTE | 2024-04-28 14:42 | PT.OTN ---
Current Diagnoses Pain in right hip (04/28/24) Pain in right thigh (04/28/24) Pain in left thigh (04/28/24) Physical Therapy Treatment Note PT-OP-A Visit Information Start: 04/11/24 13:35 Freq: Status: Active Protocol: Document 04/28/24 08:03 AB (Rec: 04/28/24 09:02 AB [id number]) Out-Patient Physical Therapy Visit Information Visit Information Visit Type Treatment Note Visit Note Christian, 01/23 before prog note or by 05/13/24 15 visits for this referral Access Code: [email or web address] Visit Start Time 08:17 Visit Stop Time 08:59 Visit Number 3 Number of SALES COACH Visits 1 Evaluation Information Evaluation Date 04/12/24 Precautions Precautions Possible aqua ablation for BPH 05/03/24. Surgeon said he can con't with PT afterwards and should not bike for 6 weeks. PT will do re-eval on 05/17/24 if he undergoes procedure. PT-OP-B Current Condition Start: 04/11/24 13:35 Freq: Status: Active Protocol: Document 04/12/24 07:25 MB (Rec: 04/12/24 08:02 MB [id number]) Current Condition History of Current Condition Onset Date 03/19/24 Current Complaints [place] in [place], got right hip pain History of Current Condition Pt reports that he was trail riding and he got increased pain. His long-term goal is flexibility and strength. He would like to get back to [place] room dancing. 10 years ago, he had a partiall achilles tear. He was carrying suitcases up the stairs and it tore. He did not have surgery , he was put in a boot and then had an extensive course of PT. 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 He had a special laser procedure for this 1 year ago. He could not exert himself a lot until he had surgery. He has been biking once a week in the winter and 3x/wk in the summer and he likes downhill skiing as well. Pt with BPH and urinary symptoms and he is currently being treated for this. He has not yet received pelvic floor PT. He has aqua ablation on . He was told not to bike for 6 weeks after and no heavy lifting for two weeks. Pt reports 6/10 lateral and anterior right hip pain and 4/ 10 posterolateral right hip pain over hamstrings. He reports anterior right leg pain feels like the quads. He reports that after second bike ride, he couldn't walk because hip couldn't bear weight. Pt presents with wet vocal tone. 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 Pt denies numbness and tingling. Pt sleeps badly. He has a foam mattress. He has a jasson size bed and sleeps with . He wakes up 2-3x/night to urinate. PT-OP-C Subjective Start: 04/11/24 13:35 Freq: Status: Active Protocol: Document 04/28/24 08:03 AB (Rec: 04/28/24 09:02 AB [id number]) OP-PT Subjective Patient Comments Patient Comments Patient reports he is slightly better overall. Patient reports he is having difficulty with the Galdino stretch on the right side. PT-OP-G Mobility & Gait Start: 04/11/24 13:35 Freq: Status: Active Protocol: Document 04/12/24 07:25 MB (Rec: 04/12/24 08:02 MB [id number]) OP Gait Assessment Comments Gait Comments Decreased step-length and hip movement right leg with gait, antalgic gait and decreased right hip flexion PT-OP-J Posture/Palpation/Skin Start: 04/11/24 13:35 Freq: Status: Active Protocol: Document 04/12/24 07:25 MB (Rec: 04/12/24 08:02 MB [id number]) Posture Evaluation Comments Posture Comments Standing posture: forward flexion at hips, rounded shoulders, flat spine, mild convexity or hypertrophy to the right in lumbar area, right iliac crest is higher than the left. More overpronation left foot than the right in standing and increased Azael angle on the right compared to left. Anterior tilt pelvis and increased abdominal distention forward. In supine, neither posterior knee/leg touch the mat and this may be d/t a combination of anterior pelvis, knee degenerative changes and hips, pt reports discomfort lateral hip. B SLR grossly 60 deg. PT-OP-K Range of Motion Start: 04/11/24 13:35 Freq: Status: Active Protocol: Document 04/12/24 07:25 MB (Rec: 04/12/24 12:05 MB [id number]) Hip Goniometric Range of Motion Hip ROM Limitations Comments Supine passive hip ER and IR normal on the left and mildly reduced passive IR on the right Scour right is negative Knee Goniometric Range of Motion Knee ROM Limitations Comments Pt may have some degenerative changes in B knees vs anterior tilt pelvis as neither posterior leg touches the legs in supine PT-OP-M Strength Start: 04/11/24 13:35 Freq: Status: Active Protocol: Document 04/12/24 07:25 MB (Rec: 04/12/24 12:05 MB [id number]) Hip Strength Hip Manual Muscle Testing Left Flexion (L2) 5 Normal Extension (S1) 5 Normal Abduction 5 Normal Right Flexion (L2) 4+ Good+ Extension (S1) 5 Normal Abduction 4+ Good+ Comments Right hip lateral pain with MMT Knee Strength Knee Manual Muscle Testing Bilateral Flexion (S2) 5 Normal Extension (L3) 5 Normal Comments Right hip lateral pain with MMT extension Ankle/Foot Strength Ankle and Foot Manual Muscle Testing Bilateral Dorsiflexion (L4) 5 Normal Toe Strength Toe Manual Muscle Testing Left Great Toe Extension 5 Normal Right Great Toe Extension 5 Normal PT-OP-Q Treatments Start: 04/11/24 13:35 Freq: Status: Active Protocol: Document 04/28/24 08:03 AB (Rec: 04/28/24 09:02 AB [id number]) Therapeutic Exercises Supine Exercises LTR with abd drawing in Reps/Minutes 60 sec Comments verbal and tactile cues, reports right quad tightening Hip flexor and quad stretches Side bilateral Reps/Minutes X2 Comments B with opposite leg to chest and increased tension on right , changed to HS Hamstring stretch with MWM Side bilateral Reps/Minutes X2 Comments 60 sec Pelvic realignment exercises Side bilateral Equipment Used Blue ball Reps/Minutes 5 reps, 3 sec hold all exercises in order Comments Feet together ball squeeze iso , knee opp ankle iso, knee press down iso Standing Exercises hip flexor stretch in doorway Standing Exercise Name 1. UE's on doorframe with lunge posit 2. lunge through door with sidebend Side bilateral Reps/Minutes 40 to 60 sec X1 each LE, for each type of door lunge Comments Patient verbalizes preference to lunge at door frame with over arm side stacey Manual Therapy Treatment Soft Tissue Mobilization hips Body Location hip flexor at groin and hamstring bilateral Mobilization Type Cross-Friction,Rolling Intensity/Depth Moderate Body Position Hooklying Comments and sidelying prior to stretch PT-OP-T Assessment and Plan Start: 04/11/24 13:35 Freq: Status: Active Protocol: Document 04/28/24 08:03 AB (Rec: 04/28/24 09:02 AB [id number]) Physical Therapy Assessment Goals 3 Impairment Lack of PT HEP Software Consultant Goal (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 LTG Duration 8 weeks 2 Impairment Decreased right hip strength Long-Term Goal (LTG) Pt will present with 5/5 right hip flexion and abduction strength to improve functional strength, balance and gait. LTG Duration 8 weeks 1 Impairment LEF score is 39/80 Software Consultant Goal (LTG) Pt will present with improved LEF score to no more than 20/ 80 to reflect improved pain and function. LTG Duration 8 weeks Assessment Summary Assessment Patient reports feeling good end of session, reports having no pain end of session. Patient reported right quad tightening with trial of LTR/ knee rocking with abdominal drawing in exercise. Physical Therapy Plan Frequency and Duration Frequency of Treatment 1-2x/wk Duration of treatment (weeks) 8 Plan of Care Start Date 04/12/24 Plan of Care End Date 06/12/24 Next Visit Focus/Plan Next Note Type Treatment Note Next Visit Plan Review previous exercises, HEP and ongoing gentle manual, TFL and QL d/t lateralis and ITB tension Buteyko breathing with primary PT, progressive flexibility, strengthening and balance: start gently, one to two exercises only added per treatment. Core progression to include revisit pelvic tilt with abd drawing in, knees side to side, HS heel down (no leg lift), knee fall out, possible bridge, mini march
--- NOTE | 2024-05-24 08:15 | PT.OTN ---
Current Diagnoses Pain in right hip (05/24/24) Pain in right thigh (05/24/24) Pain in left thigh (05/24/24) Physical Therapy Treatment Note PT-OP-A Visit Information Start: 04/11/24 13:35 Freq: Status: Active Protocol: Document 05/24/24 07:33 MB (Rec: 05/24/24 08:15 MB [id number]) Out-Patient Physical Therapy Visit Information Visit Information Visit Type Progress Note Visit Note mayra Gonzalesg by 06/24/24 15 visits for this referral Access Code: [email or web address] Visit Start Time 07:33 Visit Stop Time 08:13 Visit Number 4 Number of COMPUTER TECHNOLOGY INSTRUCTOR Visits 0 Evaluation Information Evaluation Date 04/12/24 Precautions Precautions Pt did not have aqua ablation PT-OP-B Current Condition Start: 04/11/24 13:35 Freq: Status: Active Protocol: Document 04/12/24 07:25 MB (Rec: 04/12/24 08:02 MB [id number]) Current Condition History of Current Condition Onset Date 03/19/24 Current Complaints [place] riding in [employer], got right hip pain History of Current Condition Pt reports that he was trail riding and he got increased pain. His long-term goal is flexibility and strength. He would like to get back to [employer] room dancing. 10 years ago, he had a partiall achilles tear. He was carrying suitcases up the stairs and it tore. He did not have surgery , he was put in a boot and then had an extensive course of PT. 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 He had a special laser procedure for this 1 year ago. He could not exert himself a lot until he had surgery. He has been biking once a week in the winter and 3x/wk in the summer and he likes downhill skiing as well. Pt with BPH and urinary symptoms and he is currently being treated for this. He has not yet received pelvic floor PT. He has aqua ablation on . He was told not to bike for 6 weeks after and no heavy lifting for two weeks. Pt reports 6/10 lateral and anterior right hip pain and 4/ 10 posterolateral right hip pain over hamstrings. He reports anterior right leg pain feels like the quads. He reports that after second bike ride, he couldn't walk because hip couldn't bear weight. Pt presents with wet vocal tone. 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 Pt denies numbness and tingling. Pt sleeps badly. He has a foam mattress. He has a jasson size bed and sleeps with . He wakes up 2-3x/night to urinate. PT-OP-C Subjective Start: 04/11/24 13:35 Freq: Status: Active Protocol: Document 05/24/24 07:33 MB (Rec: 05/24/24 08:15 MB [id number]) OP-PT Subjective Patient Comments Patient Comments Pt has been doing pelvic realignment exercises. Hamstring stretch hurt so he wasn't doing it as much. The Galdino stretch was painful but he didn't understand the doorway stretch as much. He has one more work trip and then is able to be more consistent with PT through Labor Day and would like more appointments. PT-OP-G Mobility & Gait Start: 04/11/24 13:35 Freq: Status: Active Protocol: Document 04/12/24 07:25 MB (Rec: 04/12/24 08:02 MB [id number]) OP Gait Assessment Comments Gait Comments Decreased step-length and hip movement right leg with gait, antalgic gait and decreased right hip flexion PT-OP-J Posture/Palpation/Skin Start: 04/11/24 13:35 Freq: Status: Active Protocol: Document 04/12/24 07:25 MB (Rec: 04/12/24 08:02 MB [id number]) Posture Evaluation Comments Posture Comments Standing posture: forward flexion at hips, rounded shoulders, flat spine, mild convexity or hypertrophy to the right in lumbar area, right iliac crest is higher than the left. More overpronation left foot than the right in standing and increased Azael angle on the right compared to left. Anterior tilt pelvis and increased abdominal distention forward. In supine, neither posterior knee/leg touch the mat and this may be d/t a combination of anterior pelvis, knee degenerative changes and hips, pt reports discomfort lateral hip. B SLR grossly 60 deg. PT-OP-K Range of Motion Start: 04/11/24 13:35 Freq: Status: Active Protocol: Document 04/12/24 07:25 MB (Rec: 04/12/24 12:05 MB [id number]) Hip Goniometric Range of Motion Hip ROM Limitations Comments Supine passive hip ER and IR normal on the left and mildly reduced passive IR on the right Scour right is negative Knee Goniometric Range of Motion Knee ROM Limitations Comments Pt may have some degenerative changes in B knees vs anterior tilt pelvis as neither posterior leg touches the legs in supine PT-OP-M Strength Start: 04/11/24 13:35 Freq: Status: Active Protocol: Document 04/12/24 07:25 MB (Rec: 04/12/24 12:05 MB [id number]) Hip Strength Hip Manual Muscle Testing Left Flexion (L2) 5 Normal Extension (S1) 5 Normal Abduction 5 Normal Right Flexion (L2) 4+ Good+ Extension (S1) 5 Normal Abduction 4+ Good+ Comments Right hip lateral pain with MMT Knee Strength Knee Manual Muscle Testing Bilateral Flexion (S2) 5 Normal Extension (L3) 5 Normal Comments Right hip lateral pain with MMT extension Ankle/Foot Strength Ankle and Foot Manual Muscle Testing Bilateral Dorsiflexion (L4) 5 Normal Toe Strength Toe Manual Muscle Testing Left Great Toe Extension 5 Normal Right Great Toe Extension 5 Normal PT-OP-Q Treatments Start: 04/11/24 13:35 Freq: Status: Active Protocol: Document 05/24/24 07:33 MB (Rec: 05/24/24 08:15 MB [id number]) Therapeutic Exercises Supine Exercises Hip flexor and quad stretches Comments Performed today with towel behind flexed leg to help and pt is okay with st Hamstring stretch with MWM Comments Performed several times today and used towel roll around leg and more vinh Pelvic realignment exercises Comments No questions Standing Exercises hip flexor stretch in doorway Standing Exercise Name Progressive stretch: pect, hip flexor and calf and then QL Reps/Minutes 30 sec to one minute in each position on each side Comments Pt prefers to hold 10 sec and then get back into position Self-Care/Home Management Treatment Education Other Education Ongoing education about when to stretch, going pelvic realignment exercises, progressiong of activities, careful if returning to treadmill PT-OP-T Assessment and Plan Start: 04/11/24 13:35 Freq: Status: Active Protocol: Document 05/24/24 07:33 MB (Rec: 05/24/24 08:15 MB [id number]) Physical Therapy Assessment Rehab Potential Rehabilitation Potential Fair Evaluation Complexity Number of Personal Factors/Comorbidities 1-2 Number of Body Systems Impaired 3 Clinical Presentation at Evaluation Evolving Impairments Impairments Activity Tolerance,Balance, Functional Activities, Functional Mobility,Gait,Pain, Posture,ROM,Soft Tissue Mobility,Strength Goals 3 Impairment Lack of PT HEP Assisted Goal (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 05/24/24: Pt is performing pelvic realignment exercises regularly and stretches not as much LTG Duration 8 weeks 2 Impairment Decreased right hip strength Screener And Blender Operator Goal (LTG) Pt will present with 5/5 right hip flexion and abduction strength to improve functional strength, balance and gait. 05/24/24: Left hip flexion and abduction 4+/5; right hip flexion and abduction 4+/5 and improved with feeling it in right hip flexor with testing LTG Duration 8 weeks 1 Impairment LEF score is 39/80 Screener And Blender Operator Goal (LTG) Pt will present with improved LEF score to no more than 20/ 80 to reflect improved pain and function. 05/24/24: LEF score reflects 28. 75% impairment and is improved LTG Duration 8 weeks Assessment Summary Assessment Pt reports burning in B quads when standing for an hour. It is possible that he has a spinal component to his symptoms. He also has known pelvic floor challenges and did not have procedure. Pt will be able to attend PT more consistently and states he will perform revised exercises more consistently. Anticipate further progression towards PT goals. Physical Therapy Plan Frequency and Duration Frequency of Treatment 1-2x/wk Duration of treatment (weeks) 8 Plan of Care Start Date 05/24/24 Plan of Care End Date 07/25/24 Therapeutic Interventions Therapeutic Interventions Balance Training,Canalithic Repositioning,Gait Training, Home Exercise Program,Joint Mobilizations,Manual Therapy, Neuromuscular Re-education, Patient/Caregiver Education, Self-Care/Home Management, Sensory Integration,Soft Tissue Mobilization,Taping, Therapeutic Activities, Therapeutic Exercises Modalities Cold Pack/Ice Massage,Electric Stimulation,Hot Packs, Ultrasound Next Visit Focus/Plan Next Note Type Treatment Note Next Visit Plan Re-check to see if pt is okay with stretches as modified, if not, standing lunge type quad stretch with UE support same side Gentle manual work Buteyko breathing with primary PT, progressive flexibility, strengthening and balance: start gently, one to two exercises only added per treatment. Core progression to include revisit pelvic tilt with abd drawing in, knees side to side, HS heel down (no leg lift), knee fall out, possible bridge, mini march
--- NOTE | 2024-05-24 08:15 | PT.OPPOC ---
Physical, Occupational & Speech Therapy At Current Diagnoses Pain in right hip (05/24/24) Pain in right thigh (05/24/24) Pain in left thigh (05/24/24) Visit Care Team Role Provider Type Danny Marti DO Attending Provider Physician Family Provider Primary Care Provider Referring Provider Specialty: Family Practice Address: [address] [place] [address], [facility] Email: [email or web address] Plan Of Care PT-OP-T Assessment and Plan Start: 04/11/24 13:35 Freq: Status: Active Protocol: Document 05/24/24 07:33 MB (Rec: 05/24/24 08:15 MB [id number]) Physical Therapy Assessment Rehab Potential Rehabilitation Potential Fair Evaluation Complexity Number of Personal Factors/Comorbidities 1-2 Number of Body Systems Impaired 3 Clinical Presentation at Evaluation Evolving Impairments Impairments Activity Tolerance,Balance, Functional Activities, Functional Mobility,Gait,Pain, Posture,ROM,Soft Tissue Mobility,Strength Goals 3 Impairment Lack of PT HEP Clinical Lab Technologist Goal (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 05/24/24: Pt is performing pelvic realignment exercises regularly and stretches not as much LTG Duration 8 weeks 2 Impairment Decreased right hip strength Skilled Nursing Goal (LTG) Pt will present with 5/5 right hip flexion and abduction strength to improve functional strength, balance and gait. 05/24/24: Left hip flexion and abduction 4+/5; right hip flexion and abduction 4+/5 and improved with feeling it in right hip flexor with testing LTG Duration 8 weeks 1 Impairment LEF score is 39/80 Clinical Lab Technologist Goal (LTG) Pt will present with improved LEF score to no more than 20/ 80 to reflect improved pain and function. 05/24/24: LEF score reflects 28. 75% impairment and is improved LTG Duration 8 weeks Assessment Summary Assessment Pt reports burning in B quads when standing for an hour. It is possible that he has a spinal component to his symptoms. He also has known pelvic floor challenges and did not have procedure. Pt will be able to attend PT more consistently and states he will perform revised exercises more consistently. Anticipate further progression towards PT goals. Physical Therapy Plan Frequency and Duration Frequency of Treatment 1-2x/wk Duration of treatment (weeks) 8 Plan of Care Start Date 05/24/24 Plan of Care End Date 07/25/24 Therapeutic Interventions Therapeutic Interventions Balance Training,Canalithic Repositioning,Gait Training, Home Exercise Program,Joint Mobilizations,Manual Therapy, Neuromuscular Re-education, Patient/Caregiver Education, Self-Care/Home Management, Sensory Integration,Soft Tissue Mobilization,Taping, Therapeutic Activities, Therapeutic Exercises Modalities Cold Pack/Ice Massage,Electric Stimulation,Hot Packs, Ultrasound Next Visit Focus/Plan Next Note Type Treatment Note Next Visit Plan Re-check to see if pt is okay with stretches as modified, if not, standing lunge type quad stretch with UE support same side Gentle manual work Buteyko breathing with primary PT, progressive flexibility, strengthening and balance: start gently, one to two exercises only added per treatment. Core progression to include revisit pelvic tilt with abd drawing in, knees side to side, HS heel down (no leg lift), knee fall out, possible bridge, mini january Plan of Care Dates Plan of Care Start Date 05/24/24 Plan of Care End Date 07/25/24 Electronically Signed by: Claudia Acevedo, PT 05/24/24 0816 If you are in agreement with this Plan of Care, please return a signed and dated copy. I have reviewed this Plan of Care and certify that the skilled therapy services above are required to meet the patient?s needs. Physician Signature Date Printed Name and Credentials Clinical Instructor Signature Printed Name and Credentials
--- NOTE | 2024-05-26 12:56 | PT.OTN ---
Current Diagnoses Pain in right hip (05/26/24) Pain in right thigh (05/26/24) Pain in left thigh (05/26/24) Physical Therapy Treatment Note PT-OP-A Visit Information Start: 04/11/24 13:35 Freq: Status: Active Protocol: Document 05/26/24 08:12 AB (Rec: 05/26/24 12:56 AB [id number]) Out-Patient Physical Therapy Visit Information Visit Information Visit Type Treatment Note Visit Note mayra Gonzales by 06/24/24 15 visits for this referral Access Code: [email or web address] Visit Start Time 09:17 Visit Stop Time 10:31 Visit Number 5 Number of HOST/HOSTESS GROUND Visits 1 Evaluation Information Evaluation Date 04/12/24 Precautions Precautions Pt did not have aqua ablation PT-OP-B Current Condition Start: 04/11/24 13:35 Freq: Status: Active Protocol: Document 04/12/24 07:25 MB (Rec: 04/12/24 08:02 MB [id number]) Current Condition History of Current Condition Onset Date 03/19/24 Current Complaints [place] riding in [employer], got right hip pain History of Current Condition Pt reports that he was trail riding and he got increased pain. His long-term goal is flexibility and strength. He would like to get back to [employer] room dancing. 10 years ago, he had a partiall achilles tear. He was carrying suitcases up the stairs and it tore. He did not have surgery , he was put in a boot and then had an extensive course of PT. 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 He had a special laser procedure for this 1 year ago. He could not exert himself a lot until he had surgery. He has been biking once a week in the winter and 3x/wk in the summer and he likes downhill skiing as well. Pt with BPH and urinary symptoms and he is currently being treated for this. He has not yet received pelvic floor PT. He has aqua ablation on . He was told not to bike for 6 weeks after and no heavy lifting for two weeks. Pt reports 6/10 lateral and anterior right hip pain and 4/ 10 posterolateral right hip pain over hamstrings. He reports anterior right leg pain feels like the quads. He reports that after second bike ride, he couldn't walk because hip couldn't bear weight. Pt presents with wet vocal tone. 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 Pt denies numbness and tingling. Pt sleeps badly. He has a foam mattress. He has a jasson size bed and sleeps with . He wakes up 2-3x/night to urinate. PT-OP-C Subjective Start: 04/11/24 13:35 Freq: Status: Active Protocol: Document 05/26/24 08:12 AB (Rec: 05/26/24 12:56 AB [id number]) OP-PT Subjective Patient Comments Patient Comments Patient reports the alignment exercises are going well are part of daily routine, comments he needs more focus on HS and quads as they are incredibly tight, comments he has not yet start to use the towel or band for the stretches, but hasn't incorporated this into his HEP at home. Patient reports he no longer has pain with turning in bed, is biking on level surface 1-2 X a week same time as prev to injury and would like to return to downhill skiing by next ski season. PT-OP-G Mobility & Gait Start: 04/11/24 13:35 Freq: Status: Active Protocol: Document 04/12/24 07:25 MB (Rec: 04/12/24 08:02 MB [id number]) OP Gait Assessment Comments Gait Comments Decreased step-length and hip movement right leg with gait, antalgic gait and decreased right hip flexion PT-OP-J Posture/Palpation/Skin Start: 04/11/24 13:35 Freq: Status: Active Protocol: Document 04/12/24 07:25 MB (Rec: 04/12/24 08:02 MB [id number]) Posture Evaluation Comments Posture Comments Standing posture: forward flexion at hips, rounded shoulders, flat spine, mild convexity or hypertrophy to the right in lumbar area, right iliac crest is higher than the left. More overpronation left foot than the right in standing and increased Azael angle on the right compared to left. Anterior tilt pelvis and increased abdominal distention forward. In supine, neither posterior knee/leg touch the mat and this may be d/t a combination of anterior pelvis, knee degenerative changes and hips, pt reports discomfort lateral hip. B SLR grossly 60 deg. PT-OP-K Range of Motion Start: 04/11/24 13:35 Freq: Status: Active Protocol: Document 04/12/24 07:25 MB (Rec: 04/12/24 12:05 MB [id number]) Hip Goniometric Range of Motion Hip ROM Limitations Comments Supine passive hip ER and IR normal on the left and mildly reduced passive IR on the right Scour right is negative Knee Goniometric Range of Motion Knee ROM Limitations Comments Pt may have some degenerative changes in B knees vs anterior tilt pelvis as neither posterior leg touches the legs in supine PT-OP-M Strength Start: 04/11/24 13:35 Freq: Status: Active Protocol: Document 04/12/24 07:25 MB (Rec: 04/12/24 12:05 MB [id number]) Hip Strength Hip Manual Muscle Testing Left Flexion (L2) 5 Normal Extension (S1) 5 Normal Abduction 5 Normal Right Flexion (L2) 4+ Good+ Extension (S1) 5 Normal Abduction 4+ Good+ Comments Right hip lateral pain with MMT Knee Strength Knee Manual Muscle Testing Bilateral Flexion (S2) 5 Normal Extension (L3) 5 Normal Comments Right hip lateral pain with MMT extension Ankle/Foot Strength Ankle and Foot Manual Muscle Testing Bilateral Dorsiflexion (L4) 5 Normal Toe Strength Toe Manual Muscle Testing Left Great Toe Extension 5 Normal Right Great Toe Extension 5 Normal PT-OP-Q Treatments Start: 04/11/24 13:35 Freq: Status: Active Protocol: Document 05/26/24 08:12 AB (Rec: 05/26/24 12:56 AB [id number]) Therapeutic Exercises Supine Exercises abdominal bracing with heel slide Supine Exercise Name HEP Side bilateral Reps/Minutes X10 x2 Comments Verbal cues to brace enough to eliminate LTR with abd drawing in Supine Exercise Name HEP Reps/Minutes 60 sec Comments Verbal cues to brace and move LE's without mvt at spine or quad symptoms Hamstring stretch with MWM Supine Exercise Name 1. with strap at foot 2, with strap beind knee Side bilateral Reps/Minutes X1 each LE each stretch Comments 1. X 10 2. one minute Standing Exercises hip flexor stretch in doorway Standing Exercise Name Progressive stretch: pect, hip flexor and calf and then QL Side bilateral Reps/Minutes 10 sec X 2each side Comments Verbal cues to look straight and VC for final component of stretch QL Manual Therapy Treatment Consent Patient gave verbal consent for manual Yes treatment Soft Tissue Mobilization hips Body Location hip flexor at groin and hamstring bilateral Mobilization Type Cross-Friction,Rolling Intensity/Depth Moderate Body Position Hooklying Comments and sidelying prior to stretch PT-OP-T Assessment and Plan Start: 04/11/24 13:35 Freq: Status: Active Protocol: Document 05/26/24 08:12 AB (Rec: 05/26/24 12:56 AB [id number]) Physical Therapy Assessment Goals 3 Impairment Lack of PT HEP Wardrobe Specialist Goal (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 05/24/24: Pt is performing pelvic realignment exercises regularly and stretches not as much LTG Duration 8 weeks 2 Impairment Decreased right hip strength Fdc Goal (LTG) Pt will present with 5/5 right hip flexion and abduction strength to improve functional strength, balance and gait. 05/24/24: Left hip flexion and abduction 4+/5; right hip flexion and abduction 4+/5 and improved with feeling it in right hip flexor with testing LTG Duration 8 weeks 1 Impairment LEF score is 39/80 Wardrobe Specialist Goal (LTG) Pt will present with improved LEF score to no more than 20/ 80 to reflect improved pain and function. 05/24/24: LEF score reflects 28. 75% impairment and is improved LTG Duration 8 weeks Assessment Summary Assessment Patient able to elimante right quad tightening with heel slide by increasing abdominal drawing in during session. Physical Therapy Plan Frequency and Duration Frequency of Treatment 1-2x/wk Duration of treatment (weeks) 8 Plan of Care Start Date 05/24/24 Plan of Care End Date 07/25/24 Next Visit Focus/Plan Next Note Type Treatment Note Next Visit Plan Gentle manual work Buteyko breathing with primary PT, progressive flexibility, strengthening and balance: start gently, one to two exercises only added per treatment. Core progression to include revisit pelvic tilt with abd drawing in, possible bridge, mini january
--- NOTE | 2024-05-31 08:18 | PT.OTN ---
Current Diagnoses Pain in right hip (05/31/24) Pain in right thigh (05/31/24) Pain in left thigh (05/31/24) Physical Therapy Treatment Note PT-OP-A Visit Information Start: 04/11/24 13:35 Freq: Status: Active Protocol: Document 05/31/24 07:32 MB (Rec: 05/31/24 08:11 MB [id number]) Out-Patient Physical Therapy Visit Information Visit Information Visit Type Treatment Note Visit Note mayra Gonzalesg by 06/24/24 15 visits for this referral Access Code: [email or web address] Visit Start Time 07:32 Visit Stop Time 08:12 Visit Number 6 Number of FISH FARMER Visits 0 Evaluation Information Evaluation Date 04/12/24 Precautions Precautions Pt did not have aqua ablation PT-OP-B Current Condition Start: 04/11/24 13:35 Freq: Status: Active Protocol: Document 04/12/24 07:25 MB (Rec: 04/12/24 08:02 MB [id number]) Current Condition History of Current Condition Onset Date 03/19/24 Current Complaints [place] riding in [employer], got right hip pain History of Current Condition Pt reports that he was trail riding and he got increased pain. His long-term goal is flexibility and strength. He would like to get back to [employer] room dancing. 10 years ago, he had a partiall achilles tear. He was carrying suitcases up the stairs and it tore. He did not have surgery , he was put in a boot and then had an extensive course of PT. 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 He had a special laser procedure for this 1 year ago. He could not exert himself a lot until he had surgery. He has been biking once a week in the winter and 3x/wk in the summer and he likes downhill skiing as well. Pt with BPH and urinary symptoms and he is currently being treated for this. He has not yet received pelvic floor PT. He has aqua ablation on . He was told not to bike for 6 weeks after and no heavy lifting for two weeks. Pt reports 6/10 lateral and anterior right hip pain and 4/ 10 posterolateral right hip pain over hamstrings. He reports anterior right leg pain feels like the quads. He reports that after second bike ride, he couldn't walk because hip couldn't bear weight. Pt presents with wet vocal tone. 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 Pt denies numbness and tingling. Pt sleeps badly. He has a foam mattress. He has a jasson size bed and sleeps with . He wakes up 2-3x/night to urinate. PT-OP-C Subjective Start: 04/11/24 13:35 Freq: Status: Active Protocol: Document 05/31/24 07:32 MB (Rec: 05/31/24 08:11 MB [id number]) OP-PT Subjective Patient Comments Patient Comments Pt is performing doorway stretches in the shower and this does not allow QL stretch . The bed is too short for Galdino stretch but he might have another bed surface may be available and he can put a pillow under hips. PT-OP-G Mobility & Gait Start: 04/11/24 13:35 Freq: Status: Active Protocol: Document 04/12/24 07:25 MB (Rec: 04/12/24 08:02 MB [id number]) OP Gait Assessment Comments Gait Comments Decreased step-length and hip movement right leg with gait, antalgic gait and decreased right hip flexion PT-OP-J Posture/Palpation/Skin Start: 04/11/24 13:35 Freq: Status: Active Protocol: Document 04/12/24 07:25 MB (Rec: 04/12/24 08:02 MB [id number]) Posture Evaluation Comments Posture Comments Standing posture: forward flexion at hips, rounded shoulders, flat spine, mild convexity or hypertrophy to the right in lumbar area, right iliac crest is higher than the left. More overpronation left foot than the right in standing and increased Azael angle on the right compared to left. Anterior tilt pelvis and increased abdominal distention forward. In supine, neither posterior knee/leg touch the mat and this may be d/t a combination of anterior pelvis, knee degenerative changes and hips, pt reports discomfort lateral hip. B SLR grossly 60 deg. PT-OP-K Range of Motion Start: 04/11/24 13:35 Freq: Status: Active Protocol: Document 04/12/24 07:25 MB (Rec: 04/12/24 12:05 MB [id number]) Hip Goniometric Range of Motion Hip ROM Limitations Comments Supine passive hip ER and IR normal on the left and mildly reduced passive IR on the right Scour right is negative Knee Goniometric Range of Motion Knee ROM Limitations Comments Pt may have some degenerative changes in B knees vs anterior tilt pelvis as neither posterior leg touches the legs in supine PT-OP-M Strength Start: 04/11/24 13:35 Freq: Status: Active Protocol: Document 04/12/24 07:25 MB (Rec: 04/12/24 12:05 MB [id number]) Hip Strength Hip Manual Muscle Testing Left Flexion (L2) 5 Normal Extension (S1) 5 Normal Abduction 5 Normal Right Flexion (L2) 4+ Good+ Extension (S1) 5 Normal Abduction 4+ Good+ Comments Right hip lateral pain with MMT Knee Strength Knee Manual Muscle Testing Bilateral Flexion (S2) 5 Normal Extension (L3) 5 Normal Comments Right hip lateral pain with MMT extension Ankle/Foot Strength Ankle and Foot Manual Muscle Testing Bilateral Dorsiflexion (L4) 5 Normal Toe Strength Toe Manual Muscle Testing Left Great Toe Extension 5 Normal Right Great Toe Extension 5 Normal PT-OP-Q Treatments Start: 04/11/24 13:35 Freq: Status: Active Protocol: Document 05/31/24 07:32 MB (Rec: 05/31/24 08:11 MB [id number]) Therapeutic Exercises Supine Exercises Abdominal drawing in and knee fall out Reps/Minutes Many reps Comments Set position and controlled fall out Abdominal drawing in and mini march Reps/Minutes Many reps Comments Set position abd drawing in and small and slow march Abdominal drawing in with pelvic tilt Supine Exercise Name Set position for other exercises Comments Performed several times, cues not squeeze glutes abdominal bracing with heel slide Reps/Minutes Many reps Comments Abd drawing in first, slow and decreased range LTR with abd drawing in Reps/Minutes Many reps Comments Abd drawing in and slide heel and tug end-range Hip flexor and quad stretches Supine Exercise Name Bilateral today, mofidied with pillow under hips Comments Performed B today and likes this better than standing Hamstring stretch with MWM Supine Exercise Name Strap around foot today Comments Re-ed in form today, hold several secs Pelvic realignment exercises Comments Pt demonstrates understanding today Standing Exercises hip flexor stretch in doorway Comments Verbally reviewed how performing in shower Self-Care/Home Management Treatment Education Other Education Added standing QL stretch in the shower with both hands on wall, ed in benefits of taking break to stretch at bike on trail and trying electrolytes with leg tension PT-OP-T Assessment and Plan Start: 04/11/24 13:35 Freq: Status: Active Protocol: Document 05/31/24 07:32 MB (Rec: 05/31/24 08:11 MB [id number]) Physical Therapy Assessment Rehab Potential Rehabilitation Potential Fair Evaluation Complexity Number of Personal Factors/Comorbidities 1-2 Number of Body Systems Impaired 3 Clinical Presentation at Evaluation Evolving Impairments Impairments Activity Tolerance,Balance, Functional Activities, Functional Mobility,Gait,Pain, Posture,ROM,Soft Tissue Mobility,Strength Goals 3 Impairment Lack of PT HEP Bogger Operator Goal (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 05/24/24: Pt is performing pelvic realignment exercises regularly and stretches not as much LTG Duration 8 weeks 2 Impairment Decreased right hip strength Group Home Goal (LTG) Pt will present with 5/5 right hip flexion and abduction strength to improve functional strength, balance and gait. 05/24/24: Left hip flexion and abduction 4+/5; right hip flexion and abduction 4+/5 and improved with feeling it in right hip flexor with testing LTG Duration 8 weeks 1 Impairment LEF score is 39/80 Group Home Goal (LTG) Pt will present with improved LEF score to no more than 20/ 80 to reflect improved pain and function. 05/24/24: LEF score reflects 28. 75% impairment and is improved LTG Duration 8 weeks Assessment Summary Assessment Pt's hip flexors and quads have increased tension and contribute to anterior tilt pelvis along with increased body mass. Re-ed on working these today and how glutes and pelvic tilt can help, stretch after short biking. Physical Therapy Plan Frequency and Duration Frequency of Treatment 1-2x/wk Duration of treatment (weeks) 8 Plan of Care Start Date 05/24/24 Plan of Care End Date 07/25/24 Therapeutic Interventions Therapeutic Interventions Balance Training,Canalithic Repositioning,Gait Training, Home Exercise Program,Joint Mobilizations,Manual Therapy, Neuromuscular Re-education, Patient/Caregiver Education, Self-Care/Home Management, Sensory Integration,Soft Tissue Mobilization,Taping, Therapeutic Activities, Therapeutic Exercises Modalities Cold Pack/Ice Massage,Electric Stimulation,Hot Packs, Ultrasound Next Visit Focus/Plan Next Note Type Treatment Note Next Visit Plan Review gentle core exercises, con't manual work, consider gentle strengthening such as clam in hook lying with band around knees and glute squeeze and progessive standing strengthening for legs, core and posture, multifidi. Consider SLS to help with balance, pelvis and tension. Consider bridge with band around knees.
--- NOTE | 2024-06-12 09:04 | PT-IP ANOTE ---
PT arrives to work on 06/12/24 and receives email from pt who reports that his is positive for COVID and that he is cancelling his appointment tomorrow, 06/13/24. Pt has a progress note due and PT can perform on his appointment 06/15/24, if he is well at that time. PT forwards pt's email to the schedulers.
--- NOTE | 2024-06-15 08:10 | PT.OTN ---
Current Diagnoses Pain in right hip (06/15/24) Pain in right thigh (06/15/24) Pain in left thigh (06/15/24) Physical Therapy Treatment Note PT-OP-A Visit Information Start: 04/11/24 13:35 Freq: Status: Active Protocol: Document 06/15/24 07:30 MB (Rec: 06/15/24 08:08 MB [id number]) Out-Patient Physical Therapy Visit Information Visit Information Visit Type Progress Note Visit Note mayra Gonzalesg by 07/16/24 15 visits for this referral Access Code: [email or web address] Visit Start Time 07:30 Visit Stop Time 08:10 Visit Number 7 Number of LAW LIBRARIAN Visits 0 Evaluation Information Evaluation Date 04/12/24 Precautions Precautions Pt did not have aqua ablation PT-OP-B Current Condition Start: 04/11/24 13:35 Freq: Status: Active Protocol: Document 04/12/24 07:25 MB (Rec: 04/12/24 08:02 MB [id number]) Current Condition History of Current Condition Onset Date 03/19/24 Current Complaints [place] riding in [place], got right hip pain History of Current Condition Pt reports that he was trail riding and he got increased pain. His long-term goal is flexibility and strength. He would like to get back to [employer] room dancing. 10 years ago, he had a partiall achilles tear. He was carrying suitcases up the stairs and it tore. He did not have surgery , he was put in a boot and then had an extensive course of PT. 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 He had a special laser procedure for this 1 year ago. He could not exert himself a lot until he had surgery. He has been biking once a week in the winter and 3x/wk in the summer and he likes downhill skiing as well. Pt with BPH and urinary symptoms and he is currently being treated for this. He has not yet received pelvic floor PT. He has aqua ablation on . He was told not to bike for 6 weeks after and no heavy lifting for two weeks. Pt reports 6/10 lateral and anterior right hip pain and 4/ 10 posterolateral right hip pain over hamstrings. He reports anterior right leg pain feels like the quads. He reports that after second bike ride, he couldn't walk because hip couldn't bear weight. Pt presents with wet vocal tone. 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 Pt denies numbness and tingling. Pt sleeps badly. He has a foam mattress. He has a jasson size bed and sleeps with . He wakes up 2-3x/night to urinate. PT-OP-C Subjective Start: 04/11/24 13:35 Freq: Status: Active Protocol: Document 06/15/24 07:30 MB (Rec: 06/15/24 08:08 MB [id number]) OP-PT Subjective Patient Comments Patient Comments Pt had COVID for the first time and he is feeling better and testing negative. He is doing everything a few times a week. He is doing hamstring stretches in the hot shower and that feels nice. He traveled last week and didn't do the exercises. He is doing the Galdino stretch with the pillow under his hips. His right quads is especially tight. PT-OP-G Mobility & Gait Start: 04/11/24 13:35 Freq: Status: Active Protocol: Document 04/12/24 07:25 MB (Rec: 04/12/24 08:02 MB [id number]) OP Gait Assessment Comments Gait Comments Decreased step-length and hip movement right leg with gait, antalgic gait and decreased right hip flexion PT-OP-J Posture/Palpation/Skin Start: 04/11/24 13:35 Freq: Status: Active Protocol: Document 04/12/24 07:25 MB (Rec: 04/12/24 08:02 MB [id number]) Posture Evaluation Comments Posture Comments Standing posture: forward flexion at hips, rounded shoulders, flat spine, mild convexity or hypertrophy to the right in lumbar area, right iliac crest is higher than the left. More overpronation left foot than the right in standing and increased Azael angle on the right compared to left. Anterior tilt pelvis and increased abdominal distention forward. In supine, neither posterior knee/leg touch the mat and this may be d/t a combination of anterior pelvis, knee degenerative changes and hips, pt reports discomfort lateral hip. B SLR grossly 60 deg. PT-OP-K Range of Motion Start: 04/11/24 13:35 Freq: Status: Active Protocol: Document 04/12/24 07:25 MB (Rec: 04/12/24 12:05 MB [id number]) Hip Goniometric Range of Motion Hip ROM Limitations Comments Supine passive hip ER and IR normal on the left and mildly reduced passive IR on the right Scour right is negative Knee Goniometric Range of Motion Knee ROM Limitations Comments Pt may have some degenerative changes in B knees vs anterior tilt pelvis as neither posterior leg touches the legs in supine PT-OP-M Strength Start: 04/11/24 13:35 Freq: Status: Active Protocol: Document 04/12/24 07:25 MB (Rec: 04/12/24 12:05 MB [id number]) Hip Strength Hip Manual Muscle Testing Left Flexion (L2) 5 Normal Extension (S1) 5 Normal Abduction 5 Normal Right Flexion (L2) 4+ Good+ Extension (S1) 5 Normal Abduction 4+ Good+ Comments Right hip lateral pain with MMT Knee Strength Knee Manual Muscle Testing Bilateral Flexion (S2) 5 Normal Extension (L3) 5 Normal Comments Right hip lateral pain with MMT extension Ankle/Foot Strength Ankle and Foot Manual Muscle Testing Bilateral Dorsiflexion (L4) 5 Normal Toe Strength Toe Manual Muscle Testing Left Great Toe Extension 5 Normal Right Great Toe Extension 5 Normal PT-OP-Q Treatments Start: 04/11/24 13:35 Freq: Status: Active Protocol: Document 06/15/24 07:30 MB (Rec: 06/15/24 08:08 MB [id number]) Therapeutic Exercises Supine Exercises Hip MMT Comments Performed today Sitting Exercises Therapy ball sitting and exercises Comments Abd drawing in, pelvic tilt forward and back and rotatations Other Exercises Reviewed HEP on progress note date Comments Performed today on progress note Manual Therapy Treatment Other Other Manual Treatments Pt supine with head and legs supported, STM right vastus lateralis and TFL PT-OP-T Assessment and Plan Start: 04/11/24 13:35 Freq: Status: Active Protocol: Document 06/15/24 07:30 MB (Rec: 06/15/24 08:08 MB [id number]) Physical Therapy Assessment Rehab Potential Rehabilitation Potential Fair Evaluation Complexity Number of Personal Factors/Comorbidities 1-2 Number of Body Systems Impaired 3 Clinical Presentation at Evaluation Evolving Impairments Impairments Activity Tolerance,Balance, Functional Activities, Functional Mobility,Gait,Pain, Posture,ROM,Soft Tissue Mobility,Strength Goals 3 Impairment Lack of PT HEP Longterm Goal (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 05/24/24: Pt is performing pelvic realignment exercises regularly and stretches not as much 06/15/24: Pt is performing exercises several times a week LTG Duration 8 weeks 2 Impairment Decreased right hip strength Education Professional Goal (LTG) Pt will present with 5/5 right hip flexion and abduction strength to improve functional strength, balance and gait. 05/24/24: Left hip flexion and abduction 4+/5; right hip flexion and abduction 4+/5 and improved with feeling it in right hip flexor with testing 06/15/24: Right hip flexion and abduction 5/5 today in hook lying LTG Duration Met goal 1 Impairment LEF score is 39/80 Education Professional Goal (LTG) Pt will present with improved LEF score to reflect no more than 20% impairment to improve pain and function. 05/24/24: LEF score reflects 28. 75% impairment and is improved 06/15/24 LEF score reflects 21. 25% impairment and pt reports walking a mile is going better LTG Duration 8 weeks Assessment Summary Assessment Pt is progressing towards all goals. He may start therapy ball sitting and exercises. Physical Therapy Plan Frequency and Duration Frequency of Treatment 1-2x/wk Duration of treatment (weeks) 8 Plan of Care Start Date 05/24/24 Plan of Care End Date 07/25/24 Therapeutic Interventions Therapeutic Interventions Balance Training,Canalithic Repositioning,Gait Training, Home Exercise Program,Joint Mobilizations,Manual Therapy, Neuromuscular Re-education, Patient/Caregiver Education, Self-Care/Home Management, Sensory Integration,Soft Tissue Mobilization,Taping, Therapeutic Activities, Therapeutic Exercises Modalities Cold Pack/Ice Massage,Electric Stimulation,Hot Packs, Ultrasound Next Visit Focus/Plan Next Note Type Treatment Note Next Visit Plan Review therapy ball exercises for core and gentle core exercises, con't manual work, consider gentle strengthening such as clam in hook lying with band around knees and glute squeeze and progessive standing strengthening for legs, core and posture, multifidi. Consider SLS to help with balance, pelvis and tension. Consider bridge with band around knees.
--- NOTE | 2024-06-15 08:10 | PT.OPPOC ---
Physical, Occupational & Speech Therapy At [facility] Current Diagnoses Pain in right hip (06/15/24) Pain in right thigh (06/15/24) Pain in left thigh (06/15/24) Visit Care Team Role Provider Type Danny Marti DO Attending Provider Physician Family Provider Primary Care Provider Referring Provider Specialty: Family Practice Address: [address] [place] [address], [facility] Email: [email or web address] Plan Of Care PT-OP-B Current Condition Start: 04/11/24 13:35 Freq: Status: Active Protocol: Document 04/12/24 07:25 MB (Rec: 04/12/24 08:02 MB [id number]) Current Condition History of Current Condition Onset Date 03/19/24 Current Complaints [place] riding in [employer], got right hip pain History of Current Condition Pt reports that he was trail riding and he got increased pain. His long-term goal is flexibility and strength. He would like to get back to [employer] dancing. 10 years ago, he had a partiall achilles tear. He was carrying suitcases up the stairs and it tore. He did not have surgery , he was put in a boot and then had an extensive course of PT. 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 He had a special laser procedure for this 1 year ago. He could not exert himself a lot until he had surgery. He has been biking once a week in the winter and 3x/wk in the summer and he likes downhill skiing as well. Pt with BPH and urinary symptoms and he is currently being treated for this. He has not yet received pelvic floor PT. He has aqua ablation on . He was told not to bike for 6 weeks after and no heavy lifting for two weeks. Pt reports 6/10 lateral and anterior right hip pain and 4/ 10 posterolateral right hip pain over hamstrings. He reports anterior right leg pain feels like the quads. He reports that after second bike ride, he couldn't walk because hip couldn't bear weight. Pt presents with wet vocal tone. 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 Pt denies numbness and tingling. Pt sleeps badly. He has a foam mattress. He has a jasson size bed and sleeps with . He wakes up 2-3x/night to urinate. PT-OP-T Assessment and Plan Start: 04/11/24 13:35 Freq: Status: Active Protocol: Document 06/15/24 07:30 MB (Rec: 06/15/24 08:08 MB [id number]) Physical Therapy Assessment Rehab Potential Rehabilitation Potential Fair Evaluation Complexity Number of Personal Factors/Comorbidities 1-2 Number of Body Systems Impaired 3 Clinical Presentation at Evaluation Evolving Impairments Impairments Activity Tolerance,Balance, Functional Activities, Functional Mobility,Gait,Pain, Posture,ROM,Soft Tissue Mobility,Strength Goals 3 Impairment Lack of PT HEP Care Home Goal (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 05/24/24: Pt is performing pelvic realignment exercises regularly and stretches not as much 06/15/24: Pt is performing exercises several times a week LTG Duration 8 weeks 2 Impairment Decreased right hip strength Market News Reporter Goal (LTG) Pt will present with 5/5 right hip flexion and abduction strength to improve functional strength, balance and gait. 05/24/24: Left hip flexion and abduction 4+/5; right hip flexion and abduction 4+/5 and improved with feeling it in right hip flexor with testing 06/15/24: Right hip flexion and abduction 5/5 today in hook lying LTG Duration Met goal 1 Impairment LEF score is 39/80 Care Home Goal (LTG) Pt will present with improved LEF score to reflect no more than 20% impairment to improve pain and function. 05/24/24: LEF score reflects 28. 75% impairment and is improved 06/15/24 LEF score reflects 21. 25% impairment and pt reports walking a mile is going better LTG Duration 8 weeks Assessment Summary Assessment Pt is progressing towards all goals. He may start therapy ball sitting and exercises. Physical Therapy Plan Frequency and Duration Frequency of Treatment 1-2x/wk Duration of treatment (weeks) 8 Plan of Care Start Date 05/24/24 Plan of Care End Date 07/25/24 Therapeutic Interventions Therapeutic Interventions Balance Training,Canalithic Repositioning,Gait Training, Home Exercise Program,Joint Mobilizations,Manual Therapy, Neuromuscular Re-education, Patient/Caregiver Education, Self-Care/Home Management, Sensory Integration,Soft Tissue Mobilization,Taping, Therapeutic Activities, Therapeutic Exercises Modalities Cold Pack/Ice Massage,Electric Stimulation,Hot Packs, Ultrasound Next Visit Focus/Plan Next Note Type Treatment Note Next Visit Plan Review therapy ball exercises for core and gentle core exercises, con't manual work, consider gentle strengthening such as clam in hook lying with band around knees and glute squeeze and progessive standing strengthening for legs, core and posture, multifidi. Consider SLS to help with balance, pelvis and tension. Consider bridge with band around knees. Plan of Care Dates Plan of Care Start Date 05/24/24 Plan of Care End Date 07/25/24 Electronically Signed by: Claudia Acevedo, LINDSEY 06/15/24 0810 If you are in agreement with this Plan of Care, please return a signed and dated copy. I have reviewed this Plan of Care and certify that the skilled therapy services above are required to meet the patient?s needs. Physician Signature Date Printed Name and Credentials Clinical Instructor Signature Printed Name and Credentials
--- NOTE | 2024-06-21 08:15 | PT.OTN ---
Current Diagnoses Pain in right hip (06/21/24) Pain in right thigh (06/21/24) Pain in left thigh (06/21/24) Physical Therapy Treatment Note PT-OP-A Visit Information Start: 04/11/24 13:35 Freq: Status: Active Protocol: Document 06/21/24 07:32 MB (Rec: 06/21/24 08:15 MB [id number]) Out-Patient Physical Therapy Visit Information Visit Information Visit Type Treatment Note Visit Note Gonzalesmayrag by 07/16/24 15 visits for this referral Access Code: [email or web address] Visit Start Time 07:32 Visit Stop Time 08:12 Visit Number 8 Number of BEEF CATTLE SPECIALIST Visits 0 Evaluation Information Evaluation Date 04/12/24 Precautions Precautions Pt did not have aqua ablation PT-OP-B Current Condition Start: 04/11/24 13:35 Freq: Status: Active Protocol: Document 04/12/24 07:25 MB (Rec: 04/12/24 08:02 MB [id number]) Current Condition History of Current Condition Onset Date 03/19/24 Current Complaints [place] riding in [employer], got right hip pain History of Current Condition Pt reports that he was trail riding and he got increased pain. His long-term goal is flexibility and strength. He would like to get back to ball room dancing. 10 years ago, he had a partiall achilles tear. He was carrying suitcases up the stairs and it tore. He did not have surgery , he was put in a boot and then had an extensive course of PT. 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 He had a special laser procedure for this 1 year ago. He could not exert himself a lot until he had surgery. He has been biking once a week in the winter and 3x/wk in the summer and he likes downhill skiing as well. Pt with BPH and urinary symptoms and he is currently being treated for this. He has not yet received pelvic floor PT. He has aqua ablation on . He was told not to bike for 6 weeks after and no heavy lifting for two weeks. Pt reports 6/10 lateral and anterior right hip pain and 4/ 10 posterolateral right hip pain over hamstrings. He reports anterior right leg pain feels like the quads. He reports that after second bike ride, he couldn't walk because hip couldn't bear weight. Pt presents with wet vocal tone. 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 Pt denies numbness and tingling. Pt sleeps badly. He has a foam mattress. He has a jasson size bed and sleeps with . He wakes up 2-3x/night to urinate. PT-OP-C Subjective Start: 04/11/24 13:35 Freq: Status: Active Protocol: Document 06/21/24 07:32 MB (Rec: 06/21/24 08:15 MB [id number]) OP-PT Subjective Patient Comments Patient Comments Pt has been walking five days a week. He has not been biking . He has been doing some PT exercises. If he walks more than 2 miles, his B hips bother him a little bit. He does his pelvic realignment exercises, then Galdino stretch and hamstring stretch 5x/day. He got a 75 cm therapy ball and will sit on it again after it is fully inflated. PT-OP-G Mobility & Gait Start: 04/11/24 13:35 Freq: Status: Active Protocol: Document 04/12/24 07:25 MB (Rec: 04/12/24 08:02 MB [id number]) OP Gait Assessment Comments Gait Comments Decreased step-length and hip movement right leg with gait, antalgic gait and decreased right hip flexion PT-OP-J Posture/Palpation/Skin Start: 04/11/24 13:35 Freq: Status: Active Protocol: Document 04/12/24 07:25 MB (Rec: 04/12/24 08:02 MB [id number]) Posture Evaluation Comments Posture Comments Standing posture: forward flexion at hips, rounded shoulders, flat spine, mild convexity or hypertrophy to the right in lumbar area, right iliac crest is higher than the left. More overpronation left foot than the right in standing and increased Azael angle on the right compared to left. Anterior tilt pelvis and increased abdominal distention forward. In supine, neither posterior knee/leg touch the mat and this may be d/t a combination of anterior pelvis, knee degenerative changes and hips, pt reports discomfort lateral hip. B SLR grossly 60 deg. PT-OP-K Range of Motion Start: 04/11/24 13:35 Freq: Status: Active Protocol: Document 04/12/24 07:25 MB (Rec: 04/12/24 12:05 MB [id number]) Hip Goniometric Range of Motion Hip ROM Limitations Comments Supine passive hip ER and IR normal on the left and mildly reduced passive IR on the right Scour right is negative Knee Goniometric Range of Motion Knee ROM Limitations Comments Pt may have some degenerative changes in B knees vs anterior tilt pelvis as neither posterior leg touches the legs in supine PT-OP-M Strength Start: 04/11/24 13:35 Freq: Status: Active Protocol: Document 04/12/24 07:25 MB (Rec: 04/12/24 12:05 MB [id number]) Hip Strength Hip Manual Muscle Testing Left Flexion (L2) 5 Normal Extension (S1) 5 Normal Abduction 5 Normal Right Flexion (L2) 4+ Good+ Extension (S1) 5 Normal Abduction 4+ Good+ Comments Right hip lateral pain with MMT Knee Strength Knee Manual Muscle Testing Bilateral Flexion (S2) 5 Normal Extension (L3) 5 Normal Comments Right hip lateral pain with MMT extension Ankle/Foot Strength Ankle and Foot Manual Muscle Testing Bilateral Dorsiflexion (L4) 5 Normal Toe Strength Toe Manual Muscle Testing Left Great Toe Extension 5 Normal Right Great Toe Extension 5 Normal PT-OP-Q Treatments Start: 04/11/24 13:35 Freq: Status: Active Protocol: Document 06/21/24 07:32 MB (Rec: 06/21/24 08:15 MB [id number]) Therapeutic Exercises Supine Exercises Hip rotator stretch Side bilateral Reps/Minutes 1 rep each side, 30 sec Comments Do not bring up bottom leg Sitting Exercises Therapy ball sitting and exercises Equipment Used 75 cm ball Comments Abd drawing in, pelvic tilt and rotations Standing Exercises hip flexor stretch in doorway Comments Performed against the wall today and QL stretch added Other Exercises Backwards walking Comments Performed in hallway and ed pt in performing on safe surface end of walks/b Manual Therapy Treatment Consent Patient gave verbal consent for manual Yes treatment Other Other Manual Treatments Pt supine with head and legs supported, STM and positional release B PFs, vastus lateralis, TrP left vastus lateralis, MWM left rectus femoris, right PFs are tightest PT-OP-T Assessment and Plan Start: 04/11/24 13:35 Freq: Status: Active Protocol: Document 06/21/24 07:32 MB (Rec: 06/21/24 08:15 MB [id number]) Physical Therapy Assessment Rehab Potential Rehabilitation Potential Fair Evaluation Complexity Number of Personal Factors/Comorbidities 1-2 Number of Body Systems Impaired 3 Clinical Presentation at Evaluation Evolving Impairments Impairments Activity Tolerance,Balance, Functional Activities, Functional Mobility,Gait,Pain, Posture,ROM,Soft Tissue Mobility,Strength Goals 3 Impairment Lack of PT HEP Jail Goal (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 05/24/24: Pt is performing pelvic realignment exercises regularly and stretches not as much 06/15/24: Pt is performing exercises several times a week LTG Duration 8 weeks 2 Impairment Decreased right hip strength Jail Goal (LTG) Pt will present with 5/5 right hip flexion and abduction strength to improve functional strength, balance and gait. 05/24/24: Left hip flexion and abduction 4+/5; right hip flexion and abduction 4+/5 and improved with feeling it in right hip flexor with testing 06/15/24: Right hip flexion and abduction 5/5 today in hook lying LTG Duration Met goal 1 Impairment LEF score is 39/80 Jail Goal (LTG) Pt will present with improved LEF score to reflect no more than 20% impairment to improve pain and function. 05/24/24: LEF score reflects 28. 75% impairment and is improved 06/15/24 LEF score reflects 21. 25% impairment and pt reports walking a mile is going better LTG Duration 8 weeks Assessment Summary Assessment Reviewed core exercises on therapy ball today and manual work. Physical Therapy Plan Frequency and Duration Frequency of Treatment 1-2x/wk Duration of treatment (weeks) 8 Plan of Care Start Date 05/24/24 Plan of Care End Date 07/25/24 Therapeutic Interventions Therapeutic Interventions Balance Training,Canalithic Repositioning,Gait Training, Home Exercise Program,Joint Mobilizations,Manual Therapy, Neuromuscular Re-education, Patient/Caregiver Education, Self-Care/Home Management, Sensory Integration,Soft Tissue Mobilization,Taping, Therapeutic Activities, Therapeutic Exercises Modalities Cold Pack/Ice Massage,Electric Stimulation,Hot Packs, Ultrasound Next Visit Focus/Plan Next Note Type Treatment Note Next Visit Plan Priority for next treatment is hook lying clams and SLS. Review gentle core exercises, con't manual work, consider gentle strengthening such as clam in hook lying with band around knees and glute squeeze and progessive standing strengthening for legs, core and posture, multifidi. Consider SLS to help with balance, pelvis and tension. Consider bridge with band around knees.
--- NOTE | 2024-06-27 08:17 | PT.OTN ---
Current Diagnoses Pain in right hip (06/27/24) Pain in right thigh (06/27/24) Pain in left thigh (06/27/24) Physical Therapy Treatment Note PT-OP-A Visit Information Start: 04/11/24 13:35 Freq: Status: Active Protocol: Document 06/27/24 07:28 MB (Rec: 06/27/24 08:17 MB [id number]) Out-Patient Physical Therapy Visit Information Visit Information Visit Type Treatment Note Visit Note mayra Gonzalesg by 07/16/24 15 visits for this referral Access Code: [email or web address] Visit Start Time 07:28 Visit Stop Time 08:08 Visit Number 9 Number of SLATE TRIMMER Visits 0 Evaluation Information Evaluation Date 04/12/24 Precautions Precautions Pt did not have aqua ablation, mild latex allergy PT-OP-B Current Condition Start: 04/11/24 13:35 Freq: Status: Active Protocol: Document 04/12/24 07:25 MB (Rec: 04/12/24 08:02 MB [id number]) Current Condition History of Current Condition Onset Date 03/19/24 Current Complaints [place] riding in [employer], got right hip pain History of Current Condition Pt reports that he was trail riding and he got increased pain. His long-term goal is flexibility and strength. He would like to get back to ball room dancing. 10 years ago, he had a partiall achilles tear. He was carrying suitcases up the stairs and it tore. He did not have surgery , he was put in a boot and then had an extensive course of PT. 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 He had a special laser procedure for this 1 year ago. He could not exert himself a lot until he had surgery. He has been biking once a week in the winter and 3x/wk in the summer and he likes downhill skiing as well. Pt with BPH and urinary symptoms and he is currently being treated for this. He has not yet received pelvic floor PT. He has aqua ablation on . He was told not to bike for 6 weeks after and no heavy lifting for two weeks. Pt reports 6/10 lateral and anterior right hip pain and 4/ 10 posterolateral right hip pain over hamstrings. He reports anterior right leg pain feels like the quads. He reports that after second bike ride, he couldn't walk because hip couldn't bear weight. Pt presents with wet vocal tone. 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 Pt denies numbness and tingling. Pt sleeps badly. He has a foam mattress. He has a jasson size bed and sleeps with . He wakes up 2-3x/night to urinate. PT-OP-C Subjective Start: 04/11/24 13:35 Freq: Status: Active Protocol: Document 06/27/24 07:28 MB (Rec: 06/27/24 08:17 MB [id number]) OP-PT Subjective Patient Comments Patient Comments Pt is doing stretches every other day. He forgot to do hip rotator stretch before Galdino stretch. He has been walking everyday and has not yet been on his bike. He has been a little scared about it. He stood around at an event for 1 .5 hours yesterday and it was fine. Pt has been sitting on therapy ball. PT-OP-G Mobility & Gait Start: 04/11/24 13:35 Freq: Status: Active Protocol: Document 04/12/24 07:25 MB (Rec: 04/12/24 08:02 MB [id number]) OP Gait Assessment Comments Gait Comments Decreased step-length and hip movement right leg with gait, antalgic gait and decreased right hip flexion PT-OP-J Posture/Palpation/Skin Start: 04/11/24 13:35 Freq: Status: Active Protocol: Document 04/12/24 07:25 MB (Rec: 04/12/24 08:02 MB [id number]) Posture Evaluation Comments Posture Comments Standing posture: forward flexion at hips, rounded shoulders, flat spine, mild convexity or hypertrophy to the right in lumbar area, right iliac crest is higher than the left. More overpronation left foot than the right in standing and increased Azael angle on the right compared to left. Anterior tilt pelvis and increased abdominal distention forward. In supine, neither posterior knee/leg touch the mat and this may be d/t a combination of anterior pelvis, knee degenerative changes and hips, pt reports discomfort lateral hip. B SLR grossly 60 deg. PT-OP-K Range of Motion Start: 04/11/24 13:35 Freq: Status: Active Protocol: Document 04/12/24 07:25 MB (Rec: 04/12/24 12:05 MB [id number]) Hip Goniometric Range of Motion Hip ROM Limitations Comments Supine passive hip ER and IR normal on the left and mildly reduced passive IR on the right Scour right is negative Knee Goniometric Range of Motion Knee ROM Limitations Comments Pt may have some degenerative changes in B knees vs anterior tilt pelvis as neither posterior leg touches the legs in supine PT-OP-M Strength Start: 04/11/24 13:35 Freq: Status: Active Protocol: Document 04/12/24 07:25 MB (Rec: 04/12/24 12:05 MB [id number]) Hip Strength Hip Manual Muscle Testing Left Flexion (L2) 5 Normal Extension (S1) 5 Normal Abduction 5 Normal Right Flexion (L2) 4+ Good+ Extension (S1) 5 Normal Abduction 4+ Good+ Comments Right hip lateral pain with MMT Knee Strength Knee Manual Muscle Testing Bilateral Flexion (S2) 5 Normal Extension (L3) 5 Normal Comments Right hip lateral pain with MMT extension Ankle/Foot Strength Ankle and Foot Manual Muscle Testing Bilateral Dorsiflexion (L4) 5 Normal Toe Strength Toe Manual Muscle Testing Left Great Toe Extension 5 Normal Right Great Toe Extension 5 Normal PT-OP-Q Treatments Start: 04/11/24 13:35 Freq: Status: Active Protocol: Document 06/27/24 07:28 MB (Rec: 06/27/24 08:17 MB [id number]) Cardio Equipment Bicycle (Upright) Duration (Minutes) 15 Resistance 6-10 Seat Position 8 Therapeutic Exercises Supine Exercises Hook lying clam Side bilateral Resistance Green latex free band Reps/Minutes 10 slow reps, abdominal in first Hip rotator stretch Side bilateral Reps/Minutes 1 rep each side, 30 sec Comments Do not bring up bottom leg Hip flexor and quad stretches Side bilateral Reps/Minutes 1 rep each side Comments 30 sec hold Hamstring stretch with MWM Side bilateral Reps/Minutes 1 rep each side Comments Severeal ankle pump reps Standing Exercises SLS Side bilateral Comments 20 sec on left leg and 30 sec on right leg, two reps Manual Therapy Treatment Other Other Manual Treatments Pt supine with head and legs supported, STM right PFs, B quads and TrP treatment right lateral gastroc, left vastus, right rectus femoris PT-OP-T Assessment and Plan Start: 04/11/24 13:35 Freq: Status: Active Protocol: Document 06/27/24 07:28 MB (Rec: 06/27/24 08:17 MB [id number]) Physical Therapy Assessment Rehab Potential Rehabilitation Potential Fair Evaluation Complexity Number of Personal Factors/Comorbidities 1-2 Number of Body Systems Impaired 3 Clinical Presentation at Evaluation Evolving Impairments Impairments Activity Tolerance,Balance, Functional Activities, Functional Mobility,Gait,Pain, Posture,ROM,Soft Tissue Mobility,Strength Goals 3 Impairment Lack of PT HEP [facility]dc Goal (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 05/24/24: Pt is performing pelvic realignment exercises regularly and stretches not as much 06/15/24: Pt is performing exercises several times a week LTG Duration 8 weeks 2 Impairment Decreased right hip strength Plywood Layup Line Core Layer Goal (LTG) Pt will present with 5/5 right hip flexion and abduction strength to improve functional strength, balance and gait. 05/24/24: Left hip flexion and abduction 4+/5; right hip flexion and abduction 4+/5 and improved with feeling it in right hip flexor with testing 06/15/24: Right hip flexion and abduction 5/5 today in hook lying LTG Duration Met goal 1 Impairment LEF score is 39/80 Fdc Goal (LTG) Pt will present with improved LEF score to reflect no more than 20% impairment to improve pain and function. 05/24/24: LEF score reflects 28. 75% impairment and is improved 06/15/24 LEF score reflects 21. 25% impairment and pt reports walking a mile is going better LTG Duration 8 weeks Assessment Summary Assessment Progressed to upright stationary bike today, SLS and hip strengthening with clam today. Con't to review and progress as needed. Physical Therapy Plan Frequency and Duration Frequency of Treatment 1-2x/wk Duration of treatment (weeks) 8 Plan of Care Start Date 05/24/24 Plan of Care End Date 07/25/24 Therapeutic Interventions Therapeutic Interventions Balance Training,Canalithic Repositioning,Gait Training, Home Exercise Program,Joint Mobilizations,Manual Therapy, Neuromuscular Re-education, Patient/Caregiver Education, Self-Care/Home Management, Sensory Integration,Soft Tissue Mobilization,Taping, Therapeutic Activities, Therapeutic Exercises Modalities Cold Pack/Ice Massage,Electric Stimulation,Hot Packs, Ultrasound Next Visit Focus/Plan Next Note Type Treatment Note Next Visit Plan Review gentle core exercises, con't manual work, consider progessive standing strengthening for legs, core and posture, multifidi. Consider bridge with band around knees.
--- NOTE | 2024-06-29 15:18 | PT.OTN ---
Current Diagnoses Pain in right hip (06/29/24) Pain in right thigh (06/29/24) Pain in left thigh (06/29/24) Physical Therapy Treatment Note PT-OP-A Visit Information Start: 04/11/24 13:35 Freq: Status: Active Protocol: Document 06/29/24 14:31 MB (Rec: 06/29/24 15:18 MB [id number]) Out-Patient Physical Therapy Visit Information Visit Information Visit Type Treatment Note Visit Note Gonzalesmayrag by 07/16/24 15 visits for this referral Access Code: [email or web address] Visit Start Time 14:31 Visit Stop Time 15:41 Visit Number 10 Number of INDUSTRY OPERATIONS INVESTIGATOR Visits 0 Evaluation Information Evaluation Date 04/12/24 Precautions Precautions Pt did not have aqua ablation, mild latex allergy PT-OP-B Current Condition Start: 04/11/24 13:35 Freq: Status: Active Protocol: Document 04/12/24 07:25 MB (Rec: 04/12/24 08:02 MB [id number]) Current Condition History of Current Condition Onset Date 03/19/24 Current Complaints [place] in [place], got right hip pain History of Current Condition Pt reports that he was trail riding and he got increased pain. His long-term goal is flexibility and strength. He would like to get back to ball room dancing. 10 years ago, he had a partiall achilles tear. He was carrying suitcases up the stairs and it tore. He did not have surgery , he was put in a boot and then had an extensive course of PT. 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 He had a special laser procedure for this 1 year ago. He could not exert himself a lot until he had surgery. He has been biking once a week in the winter and 3x/wk in the summer and he likes downhill skiing as well. Pt with BPH and urinary symptoms and he is currently being treated for this. He has not yet received pelvic floor PT. He has aqua ablation on . He was told not to bike for 6 weeks after and no heavy lifting for two weeks. Pt reports 6/10 lateral and anterior right hip pain and 4/ 10 posterolateral right hip pain over hamstrings. He reports anterior right leg pain feels like the quads. He reports that after second bike ride, he couldn't walk because hip couldn't bear weight. Pt presents with wet vocal tone. 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 Pt denies numbness and tingling. Pt sleeps badly. He has a foam mattress. He has a jasson size bed and sleeps with . He wakes up 2-3x/night to urinate. PT-OP-C Subjective Start: 04/11/24 13:35 Freq: Status: Active Protocol: Document 06/29/24 14:31 MB (Rec: 06/29/24 15:18 MB [id number]) OP-PT Subjective Patient Comments Patient Comments Pt is finding out that for his schedule, exercising 15-20 minutes first thing in the morning is the most helpful. Pt walked one hour yesterday and after half hour, his left quad burned for 3 minutes or so and then it stopped. The right hip rotator stretch feels sensitve and in the back of the right hip. His hamstrings and calves are still really tight. PT-OP-G Mobility & Gait Start: 04/11/24 13:35 Freq: Status: Active Protocol: Document 04/12/24 07:25 MB (Rec: 04/12/24 08:02 MB [id number]) OP Gait Assessment Comments Gait Comments Decreased step-length and hip movement right leg with gait, antalgic gait and decreased right hip flexion PT-OP-J Posture/Palpation/Skin Start: 04/11/24 13:35 Freq: Status: Active Protocol: Document 04/12/24 07:25 MB (Rec: 04/12/24 08:02 MB [id number]) Posture Evaluation Comments Posture Comments Standing posture: forward flexion at hips, rounded shoulders, flat spine, mild convexity or hypertrophy to the right in lumbar area, right iliac crest is higher than the left. More overpronation left foot than the right in standing and increased Azael angle on the right compared to left. Anterior tilt pelvis and increased abdominal distention forward. In supine, neither posterior knee/leg touch the mat and this may be d/t a combination of anterior pelvis, knee degenerative changes and hips, pt reports discomfort lateral hip. B SLR grossly 60 deg. PT-OP-K Range of Motion Start: 04/11/24 13:35 Freq: Status: Active Protocol: Document 04/12/24 07:25 MB (Rec: 04/12/24 12:05 MB [id number]) Hip Goniometric Range of Motion Hip ROM Limitations Comments Supine passive hip ER and IR normal on the left and mildly reduced passive IR on the right Scour right is negative Knee Goniometric Range of Motion Knee ROM Limitations Comments Pt may have some degenerative changes in B knees vs anterior tilt pelvis as neither posterior leg touches the legs in supine PT-OP-M Strength Start: 04/11/24 13:35 Freq: Status: Active Protocol: Document 04/12/24 07:25 MB (Rec: 04/12/24 12:05 MB [id number]) Hip Strength Hip Manual Muscle Testing Left Flexion (L2) 5 Normal Extension (S1) 5 Normal Abduction 5 Normal Right Flexion (L2) 4+ Good+ Extension (S1) 5 Normal Abduction 4+ Good+ Comments Right hip lateral pain with MMT Knee Strength Knee Manual Muscle Testing Bilateral Flexion (S2) 5 Normal Extension (L3) 5 Normal Comments Right hip lateral pain with MMT extension Ankle/Foot Strength Ankle and Foot Manual Muscle Testing Bilateral Dorsiflexion (L4) 5 Normal Toe Strength Toe Manual Muscle Testing Left Great Toe Extension 5 Normal Right Great Toe Extension 5 Normal PT-OP-Q Treatments Start: 04/11/24 13:35 Freq: Status: Active Protocol: Document 06/29/24 14:31 MB (Rec: 06/29/24 15:18 MB [id number]) Cardio Equipment Bicycle (Upright) Duration (Minutes) 10 Resistance 6-10 Seat Position 8 Therapeutic Exercises Other Exercises Backwards walking Comments Performed in hallway again today and ed pt to add to walks at home Manual Therapy Treatment Consent Patient gave verbal consent for manual Yes treatment Other Other Manual Treatments Pt supine with head and legs supported, TrP right TFL, glute med, rectus femoris, left vastus lateralis, STM and positional release B PFs, hamstrings, vastus lateralis PT-OP-T Assessment and Plan Start: 04/11/24 13:35 Freq: Status: Active Protocol: Document 06/29/24 14:31 MB (Rec: 06/29/24 15:18 MB [id number]) Physical Therapy Assessment Rehab Potential Rehabilitation Potential Fair Evaluation Complexity Number of Personal Factors/Comorbidities 1-2 Number of Body Systems Impaired 3 Clinical Presentation at Evaluation Evolving Impairments Impairments Activity Tolerance,Balance, Functional Activities, Functional Mobility,Gait,Pain, Posture,ROM,Soft Tissue Mobility,Strength Goals 3 Impairment 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 05/24/24: Pt is performing pelvic realignment exercises regularly and stretches not as much 06/15/24: Pt is performing exercises several times a week LTG Duration 8 weeks 2 Impairment Decreased right hip strength [facility] Goal (LTG) Pt will present with 5/5 right hip flexion and abduction strength to improve functional strength, balance and gait. 05/24/24: Left hip flexion and abduction 4+/5; right hip flexion and abduction 4+/5 and improved with feeling it in right hip flexor with testing 06/15/24: Right hip flexion and abduction 5/5 today in hook lying LTG Duration Met goal 1 Impairment LEF score is 39/80 [facility] Goal (LTG) Pt will present with improved LEF score to reflect no more than 20% impairment to improve pain and function. 05/24/24: LEF score reflects 28. 75% impairment and is improved 06/15/24 LEF score reflects 21. 25% impairment and pt reports walking a mile is going better LTG Duration 8 weeks Assessment Summary Assessment Another discussion with pt about making self-care time during the day and this will really be the most helpful for his overall fitness, flexibility and pain. Today, pt recalls a threading needle being stuck inside right lateral hip during TrP point and will monitor treatment responses. Physical Therapy Plan Frequency and Duration Frequency of Treatment 1-2x/wk Duration of treatment (weeks) 8 Plan of Care Start Date 05/24/24 Plan of Care End Date 07/25/24 Therapeutic Interventions Therapeutic Interventions Balance Training,Canalithic Repositioning,Gait Training, Home Exercise Program,Joint Mobilizations,Manual Therapy, Neuromuscular Re-education, Patient/Caregiver Education, Self-Care/Home Management, Sensory Integration,Soft Tissue Mobilization,Taping, Therapeutic Activities, Therapeutic Exercises Modalities Cold Pack/Ice Massage,Electric Stimulation,Hot Packs, Ultrasound Next Visit Focus/Plan Next Note Type Treatment Note Next Visit Plan Same: review gentle core exercises, con't manual work, consider progessive standing strengthening for legs, core and posture, multifidi. Consider bridge with band around knees.
--- NOTE | 2024-07-05 08:11 | PT.OTN ---
Current Diagnoses Pain in right hip (07/05/24) Pain in right thigh (07/05/24) Pain in left thigh (07/05/24) Physical Therapy Treatment Note PT-OP-A Visit Information Start: 04/11/24 13:35 Freq: Status: Active Protocol: Document 07/05/24 07:28 MB (Rec: 07/05/24 08:11 MB [id number]) Out-Patient Physical Therapy Visit Information Visit Information Visit Type Treatment Note Visit Note mayra Gonzalesg by 07/16/24 15 visits for this referral Access Code: [email or web address] Visit Start Time 07:28 Visit Stop Time 08:08 Visit Number 11 Number of PRODUCTION MAINTENANCE TECHNICIAN Visits 0 Evaluation Information Evaluation Date 04/12/24 Precautions Precautions Pt did not have aqua ablation, mild latex allergy PT-OP-B Current Condition Start: 04/11/24 13:35 Freq: Status: Active Protocol: Document 04/12/24 07:25 MB (Rec: 04/12/24 08:02 MB [id number]) Current Condition History of Current Condition Onset Date 03/19/24 Current Complaints [place] riding in [employer], got right hip pain History of Current Condition Pt reports that he was trail riding and he got increased pain. His long-term goal is flexibility and strength. He would like to get back to ball room dancing. 10 years ago, he had a partiall achilles tear. He was carrying suitcases up the stairs and it tore. He did not have surgery , he was put in a boot and then had an extensive course of PT. 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 He had a special laser procedure for this 1 year ago. He could not exert himself a lot until he had surgery. He has been biking once a week in the winter and 3x/wk in the summer and he likes downhill skiing as well. Pt with BPH and urinary symptoms and he is currently being treated for this. He has not yet received pelvic floor PT. He has aqua ablation on . He was told not to bike for 6 weeks after and no heavy lifting for two weeks. Pt reports 6/10 lateral and anterior right hip pain and 4/ 10 posterolateral right hip pain over hamstrings. He reports anterior right leg pain feels like the quads. He reports that after second bike ride, he couldn't walk because hip couldn't bear weight. Pt presents with wet vocal tone. 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 Pt denies numbness and tingling. Pt sleeps badly. He has a foam mattress. He has a jasson size bed and sleeps with . He wakes up 2-3x/night to urinate. PT-OP-C Subjective Start: 04/11/24 13:35 Freq: Status: Active Protocol: Document 07/05/24 07:28 MB (Rec: 07/05/24 08:11 MB [id number]) OP-PT Subjective Patient Comments Patient Comments Pt states that he has bike 3 times. Pt states that calves and hamstrings can be tight. Hip rotator stretch on right is always tight and the only thing that really feels different. PT-OP-G Mobility & Gait Start: 04/11/24 13:35 Freq: Status: Active Protocol: Document 04/12/24 07:25 MB (Rec: 04/12/24 08:02 MB [id number]) OP Gait Assessment Comments Gait Comments Decreased step-length and hip movement right leg with gait, antalgic gait and decreased right hip flexion PT-OP-J Posture/Palpation/Skin Start: 04/11/24 13:35 Freq: Status: Active Protocol: Document 04/12/24 07:25 MB (Rec: 04/12/24 08:02 MB [id number]) Posture Evaluation Comments Posture Comments Standing posture: forward flexion at hips, rounded shoulders, flat spine, mild convexity or hypertrophy to the right in lumbar area, right iliac crest is higher than the left. More overpronation left foot than the right in standing and increased Azael angle on the right compared to left. Anterior tilt pelvis and increased abdominal distention forward. In supine, neither posterior knee/leg touch the mat and this may be d/t a combination of anterior pelvis, knee degenerative changes and hips, pt reports discomfort lateral hip. B SLR grossly 60 deg. PT-OP-K Range of Motion Start: 04/11/24 13:35 Freq: Status: Active Protocol: Document 04/12/24 07:25 MB (Rec: 04/12/24 12:05 MB [id number]) Hip Goniometric Range of Motion Hip ROM Limitations Comments Supine passive hip ER and IR normal on the left and mildly reduced passive IR on the right Scour right is negative Knee Goniometric Range of Motion Knee ROM Limitations Comments Pt may have some degenerative changes in B knees vs anterior tilt pelvis as neither posterior leg touches the legs in supine PT-OP-M Strength Start: 04/11/24 13:35 Freq: Status: Active Protocol: Document 04/12/24 07:25 MB (Rec: 04/12/24 12:05 MB [id number]) Hip Strength Hip Manual Muscle Testing Left Flexion (L2) 5 Normal Extension (S1) 5 Normal Abduction 5 Normal Right Flexion (L2) 4+ Good+ Extension (S1) 5 Normal Abduction 4+ Good+ Comments Right hip lateral pain with MMT Knee Strength Knee Manual Muscle Testing Bilateral Flexion (S2) 5 Normal Extension (L3) 5 Normal Comments Right hip lateral pain with MMT extension Ankle/Foot Strength Ankle and Foot Manual Muscle Testing Bilateral Dorsiflexion (L4) 5 Normal Toe Strength Toe Manual Muscle Testing Left Great Toe Extension 5 Normal Right Great Toe Extension 5 Normal PT-OP-Q Treatments Start: 04/11/24 13:35 Freq: Status: Active Protocol: Document 07/05/24 07:28 MB (Rec: 07/05/24 08:11 MB [id number]) Therapeutic Exercises Supine Exercises Bridge with band around knees Resistance Yellow band Reps/Minutes Several reps Comments Feet together and pressing out , arms down by side Hook lying clam Side bilateral Resistance Yellow band Reps/Minutes Several reps review Abdominal drawing in and knee fall out Side bilateral Comments Several reps today Abdominal drawing in and mini march Side bilateral Comments Several reps review today Abdominal drawing in with pelvic tilt Comments Several rep review today abdominal bracing with heel slide Side bilateral Comments Several rep review today Manual Therapy Treatment Consent Patient gave verbal consent for manual Yes treatment Other Other Manual Treatments TrP treatment and STM left vastus lateralis and rectus femoris, right TFL and hip rotators and STM and TrP treatment, STM B PFs and quads PT-OP-T Assessment and Plan Start: 04/11/24 13:35 Freq: Status: Active Protocol: Document 07/05/24 07:28 MB (Rec: 07/05/24 08:11 MB [id number]) Physical Therapy Assessment Rehab Potential Rehabilitation Potential Fair Evaluation Complexity Number of Personal Factors/Comorbidities 1-2 Number of Body Systems Impaired 3 Clinical Presentation at Evaluation Evolving Impairments Impairments Activity Tolerance,Balance, Functional Activities, Functional Mobility,Gait,Pain, Posture,ROM,Soft Tissue Mobility,Strength Goals 3 Impairment 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 05/24/24: Pt is performing pelvic realignment exercises regularly and stretches not as much 06/15/24: Pt is performing exercises several times a week LTG Duration 8 weeks 2 Impairment Decreased right hip strength [facility] Goal (LTG) Pt will present with 5/5 right hip flexion and abduction strength to improve functional strength, balance and gait. 05/24/24: Left hip flexion and abduction 4+/5; right hip flexion and abduction 4+/5 and improved with feeling it in right hip flexor with testing 06/15/24: Right hip flexion and abduction 5/5 today in hook lying LTG Duration Met goal 1 Impairment LEF score is 39/80 [facility] Goal (LTG) Pt will present with improved LEF score to reflect no more than 20% impairment to improve pain and function. 05/24/24: LEF score reflects 28. 75% impairment and is improved 06/15/24 LEF score reflects 21. 25% impairment and pt reports walking a mile is going better LTG Duration 8 weeks Assessment Summary Assessment Progressed glute strengthening today. Con't progression. Physical Therapy Plan Frequency and Duration Frequency of Treatment 1-2x/wk Duration of treatment (weeks) 8 Plan of Care Start Date 05/24/24 Plan of Care End Date 07/25/24 Therapeutic Interventions Therapeutic Interventions Balance Training,Canalithic Repositioning,Gait Training, Home Exercise Program,Joint Mobilizations,Manual Therapy, Neuromuscular Re-education, Patient/Caregiver Education, Self-Care/Home Management, Sensory Integration,Soft Tissue Mobilization,Taping, Therapeutic Activities, Therapeutic Exercises Modalities Cold Pack/Ice Massage,Electric Stimulation,Hot Packs, Ultrasound Next Visit Focus/Plan Next Note Type Treatment Note Next Visit Plan Con't manual work, consider progessive standing strengthening for legs, core and posture, multifidi. Trauma release exercises.
--- NOTE | 2024-07-11 08:12 | PT.OTN ---
Current Diagnoses Pain in right hip (07/11/24) Pain in right thigh (07/11/24) Pain in left thigh (07/11/24) Physical Therapy Treatment Note PT-OP-A Visit Information Start: 04/11/24 13:35 Freq: Status: Active Protocol: Document 07/11/24 07:26 MB (Rec: 07/11/24 08:12 MB [id number]) Out-Patient Physical Therapy Visit Information Visit Information Visit Type Progress Note Visit Note 15 visits for this referral Access Code: [email or web address] Visit Start Time 07:26 Visit Stop Time 08:06 Visit Number 12 Number of NUTRITION ASSISTANT Visits 0 Evaluation Information Evaluation Date 04/12/24 Precautions Precautions Pt did not have aqua ablation, mild latex allergy PT-OP-B Current Condition Start: 04/11/24 13:35 Freq: Status: Active Protocol: Document 04/12/24 07:25 MB (Rec: 04/12/24 08:02 MB [id number]) Current Condition History of Current Condition Onset Date 03/19/24 Current Complaints [place] riding in [employer], got right hip pain History of Current Condition Pt reports that he was trail riding and he got increased pain. His long-term goal is flexibility and strength. He would like to get back to ball room dancing. 10 years ago, he had a partiall achilles tear. He was carrying suitcases up the stairs and it tore. He did not have surgery , he was put in a boot and then had an extensive course of PT. 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 He had a special laser procedure for this 1 year ago. He could not exert himself a lot until he had surgery. He has been biking once a week in the winter and 3x/wk in the summer and he likes downhill skiing as well. Pt with BPH and urinary symptoms and he is currently being treated for this. He has not yet received pelvic floor PT. He has aqua ablation on . He was told not to bike for 6 weeks after and no heavy lifting for two weeks. Pt reports 6/10 lateral and anterior right hip pain and 4/ 10 posterolateral right hip pain over hamstrings. He reports anterior right leg pain feels like the quads. He reports that after second bike ride, he couldn't walk because hip couldn't bear weight. Pt presents with wet vocal tone. 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 Pt denies numbness and tingling. Pt sleeps badly. He has a foam mattress. He has a jasson size bed and sleeps with . He wakes up 2-3x/night to urinate. PT-OP-C Subjective Start: 04/11/24 13:35 Freq: Status: Active Protocol: Document 07/11/24 07:26 MB (Rec: 07/11/24 08:12 MB [id number]) OP-PT Subjective Patient Comments Patient Comments Pt has been biking more. He took a day off and read on Thursday. His right hip rotators are better and his quads remain tight. PT-OP-G Mobility & Gait Start: 04/11/24 13:35 Freq: Status: Active Protocol: Document 04/12/24 07:25 MB (Rec: 04/12/24 08:02 MB [id number]) OP Gait Assessment Comments Gait Comments Decreased step-length and hip movement right leg with gait, antalgic gait and decreased right hip flexion PT-OP-J Posture/Palpation/Skin Start: 04/11/24 13:35 Freq: Status: Active Protocol: Document 04/12/24 07:25 MB (Rec: 04/12/24 08:02 MB [id number]) Posture Evaluation Comments Posture Comments Standing posture: forward flexion at hips, rounded shoulders, flat spine, mild convexity or hypertrophy to the right in lumbar area, right iliac crest is higher than the left. More overpronation left foot than the right in standing and increased Azael angle on the right compared to left. Anterior tilt pelvis and increased abdominal distention forward. In supine, neither posterior knee/leg touch the mat and this may be d/t a combination of anterior pelvis, knee degenerative changes and hips, pt reports discomfort lateral hip. B SLR grossly 60 deg. PT-OP-K Range of Motion Start: 04/11/24 13:35 Freq: Status: Active Protocol: Document 04/12/24 07:25 MB (Rec: 04/12/24 12:05 MB [id number]) Hip Goniometric Range of Motion Hip ROM Limitations Comments Supine passive hip ER and IR normal on the left and mildly reduced passive IR on the right Scour right is negative Knee Goniometric Range of Motion Knee ROM Limitations Comments Pt may have some degenerative changes in B knees vs anterior tilt pelvis as neither posterior leg touches the legs in supine PT-OP-M Strength Start: 04/11/24 13:35 Freq: Status: Active Protocol: Document 04/12/24 07:25 MB (Rec: 04/12/24 12:05 MB [id number]) Hip Strength Hip Manual Muscle Testing Left Flexion (L2) 5 Normal Extension (S1) 5 Normal Abduction 5 Normal Right Flexion (L2) 4+ Good+ Extension (S1) 5 Normal Abduction 4+ Good+ Comments Right hip lateral pain with MMT Knee Strength Knee Manual Muscle Testing Bilateral Flexion (S2) 5 Normal Extension (L3) 5 Normal Comments Right hip lateral pain with MMT extension Ankle/Foot Strength Ankle and Foot Manual Muscle Testing Bilateral Dorsiflexion (L4) 5 Normal Toe Strength Toe Manual Muscle Testing Left Great Toe Extension 5 Normal Right Great Toe Extension 5 Normal PT-OP-Q Treatments Start: 04/11/24 13:35 Freq: Status: Active Protocol: Document 07/11/24 07:26 MB (Rec: 07/11/24 08:12 MB [id number]) Therapeutic Exercises Supine Exercises Hip flexor and quad stretches Side bilateral Reps/Minutes 30 sec Comments Galdino stretch Hamstring stretch with MWM Side bilateral Reps/Minutes 30 sec, only APs with hamstring stretch Comments Added adductor and abductor stretches today Pelvic realignment exercises Side bilateral Equipment Used Blue ball Reps/Minutes 5 rep, 3 sec hold, all exercises in order Comments Feet together, ball squeeze, knees opp ankle, thigh press down Standing Exercises SLS Comments 20-30 sec each leg, several reps and cues for upright posture hip flexor stretch in doorway Side bilateral Other Exercises Backwards walking Comments Performed in hallway today Reviewed HEP on progress note date Comments Performed today during progress note Manual Therapy Treatment Consent Patient gave verbal consent for manual Yes treatment Other Other Manual Treatments STM B PFs, hamstrings, quads and vastus lateralis, TrP treatment B vastus lateralis PT-OP-T Assessment and Plan Start: 04/11/24 13:35 Freq: Status: Active Protocol: Document 07/11/24 07:26 MB (Rec: 07/11/24 08:12 [id number]) Physical Therapy Assessment Rehab Potential Rehabilitation Potential Fair Evaluation Complexity Number of Personal Factors/Comorbidities 1-2 Number of Body Systems Impaired 3 Clinical Presentation at Evaluation Evolving Impairments Impairments Activity Tolerance,Balance, Functional Activities, Functional Mobility,Gait,Pain, Posture,ROM,Soft Tissue Mobility,Strength Goals 3 Impairment Lack of PT HEP Non Destructive Testing Scientist Goal (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 05/24/24: Pt is performing pelvic realignment exercises regularly and stretches not as much 06/15/24: Pt is performing exercises several times a week 07/11/24: Pt is performing exercises several times a week LTG Duration 3 weeks 2 Impairment Decreased right hip strength Non Destructive Testing Scientist Goal (LTG) Pt will present with 5/5 right hip flexion and abduction strength to improve functional strength, balance and gait. 05/24/24: Left hip flexion and abduction 4+/5; right hip flexion and abduction 4+/5 and improved with feeling it in right hip flexor with testing 06/15/24: Right hip flexion and abduction 5/5 today in hook lying LTG Duration Met goal 1 Impairment LEF score is 39/80 Long-Term Goal (LTG) Pt will present with improved LEF score to reflect no more than 20% impairment to improve pain and function. 05/24/24: LEF score reflects 28. 75% impairment and is improved 06/15/24 LEF score reflects 21. 25% impairment and pt reports walking a mile is going better 07/11/24: LEF score reflects 17 .5% impairment LTG Duration Surpassed goal Assessment Summary Assessment Pt has met LE strength and surpassed LEF goal since starting PT. He has four more visits and will progress HEP. Progressed flexibility exercises today. Physical Therapy Plan Frequency and Duration Frequency of Treatment 1-2x/wk Duration of treatment (weeks) 3 Plan of Care Start Date 07/11/24 Plan of Care End Date 07/26/24 Therapeutic Interventions Therapeutic Interventions Balance Training,Canalithic Repositioning,Gait Training, Home Exercise Program,Joint Mobilizations,Manual Therapy, Neuromuscular Re-education, Patient/Caregiver Education, Self-Care/Home Management, Sensory Integration,Soft Tissue Mobilization,Taping, Therapeutic Activities, Therapeutic Exercises Modalities Cold Pack/Ice Massage,Electric Stimulation,Hot Packs, Ultrasound Next Visit Focus/Plan Next Note Type Treatment Note Next Visit Plan Con't manual work, consider progessive standing strengthening for legs, core and posture, multifidi. Trauma release exercises.
--- NOTE | 2024-07-11 08:12 | PT.OPPOC ---
Physical, Occupational & Speech Therapy At [facility] Current Diagnoses Pain in right hip (07/11/24) Pain in right thigh (07/11/24) Pain in left thigh (07/11/24) Visit Care Team Role Provider Type Danny Marti DO Attending Provider Physician Family Provider Primary Care Provider Referring Provider Specialty: Family Practice Address: [address] [place] [address], [facility] Email: [email or web address] PT-OP-B Current Condition Start: 04/11/24 13:35 Freq: Status: Active Protocol: Document 04/12/24 07:25 MB (Rec: 04/12/24 08:02 MB [id number]) Current Condition History of Current Condition Onset Date 03/19/24 Current Complaints [place] riding in [employer], got right hip pain History of Current Condition Pt reports that he was trail riding and he got increased pain. His long-term goal is flexibility and strength. He would like to get back to [employer] dancing. 10 years ago, he had a partiall achilles tear. He was carrying suitcases up the stairs and it tore. He did not have surgery , he was put in a boot and then had an extensive course of PT. 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 He had a special laser procedure for this 1 year ago. He could not exert himself a lot until he had surgery. He has been biking once a week in the winter and 3x/wk in the summer and he likes downhill skiing as well. Pt with BPH and urinary symptoms and he is currently being treated for this. He has not yet received pelvic floor PT. He has aqua ablation on . He was told not to bike for 6 weeks after and no heavy lifting for two weeks. Pt reports 6/10 lateral and anterior right hip pain and 4/ 10 posterolateral right hip pain over hamstrings. He reports anterior right leg pain feels like the quads. He reports that after second bike ride, he couldn't walk because hip couldn't bear weight. Pt presents with wet vocal tone. 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 Pt denies numbness and tingling. Pt sleeps badly. He has a foam mattress. He has a jasson size bed and sleeps with . He wakes up 2-3x/night to urinate. PT-OP-T Assessment and Plan Start: 04/11/24 13:35 Freq: Status: Active Protocol: Document 07/11/24 07:26 MB (Rec: 07/11/24 08:12 MB [id number]) Physical Therapy Assessment Rehab Potential Rehabilitation Potential Fair Evaluation Complexity Number of Personal Factors/Comorbidities 1-2 Number of Body Systems Impaired 3 Clinical Presentation at Evaluation Evolving Impairments Impairments Activity Tolerance,Balance, Functional Activities, Functional Mobility,Gait,Pain, Posture,ROM,Soft Tissue Mobility,Strength Goals 3 Impairment Lack of PT HEP Shelter Goal (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 05/24/24: Pt is performing pelvic realignment exercises regularly and stretches not as much 06/15/24: Pt is performing exercises several times a week 07/11/24: Pt is performing exercises several times a week LTG Duration 3 weeks 2 Impairment Decreased right hip strength Assistance Coordinator Goal (LTG) Pt will present with 5/5 right hip flexion and abduction strength to improve functional strength, balance and gait. 05/24/24: Left hip flexion and abduction 4+/5; right hip flexion and abduction 4+/5 and improved with feeling it in right hip flexor with testing 06/15/24: Right hip flexion and abduction 5/5 today in hook lying LTG Duration Met goal 1 Impairment LEF score is 39/80 Assistance Coordinator Goal (LTG) Pt will present with improved LEF score to reflect no more than 20% impairment to improve pain and function. 05/24/24: LEF score reflects 28. 75% impairment and is improved 06/15/24 LEF score reflects 21. 25% impairment and pt reports walking a mile is going better 07/11/24: LEF score reflects 17 .5% impairment LTG Duration Surpassed goal Assessment Summary Assessment Pt has met LE strength and surpassed LEF goal since starting PT. He has four more visits and will progress HEP. Progressed flexibility exercises today. Physical Therapy Plan Frequency and Duration Frequency of Treatment 1-2x/wk Duration of treatment (weeks) 3 Plan of Care Start Date 07/11/24 Plan of Care End Date 07/26/24 Therapeutic Interventions Therapeutic Interventions Balance Training,Canalithic Repositioning,Gait Training, Home Exercise Program,Joint Mobilizations,Manual Therapy, Neuromuscular Re-education, Patient/Caregiver Education, Self-Care/Home Management, Sensory Integration,Soft Tissue Mobilization,Taping, Therapeutic Activities, Therapeutic Exercises Modalities Cold Pack/Ice Massage,Electric Stimulation,Hot Packs, Ultrasound Next Visit Focus/Plan Next Note Type Treatment Note Next Visit Plan Con't manual work, consider progessive standing strengthening for legs, core and posture, multifidi. Trauma release exercises. Plan of Care Dates Plan of Care Start Date 07/11/24 Plan of Care End Date 07/26/24 Electronically Signed by: Claudia Acevedo, PT 07/11/24 0812 If you are in agreement with this Plan of Care, please return a signed and dated copy. I have reviewed this Plan of Care and certify that the skilled therapy services above are required to meet the patient?s needs. Physician Signature Date Printed Name and Credentials Clinical Instructor Signature Printed Name and Credentials
--- NOTE | 2024-07-13 08:12 | PT.OTN ---
Current Diagnoses Pain in right hip (07/13/24) Pain in right thigh (07/13/24) Pain in left thigh (07/13/24) Physical Therapy Treatment Note PT-OP-A Visit Information Start: 04/11/24 13:35 Freq: Status: Active Protocol: Document 07/13/24 07:31 MB (Rec: 07/13/24 08:12 MB [id number]) Out-Patient Physical Therapy Visit Information Visit Information Visit Type Treatment Note Visit Note 15 visits for this referral Access Code: [email or web address] Visit Start Time 07:31 Visit Stop Time 08:11 Visit Number 13 Number of COMPRESSED AIR PILE DRIVER OPERATOR Visits 0 Evaluation Information Evaluation Date 04/12/24 Precautions Precautions Pt did not have aqua ablation, mild latex allergy PT-OP-B Current Condition Start: 04/11/24 13:35 Freq: Status: Active Protocol: Document 04/12/24 07:25 MB (Rec: 04/12/24 08:02 MB [id number]) Current Condition History of Current Condition Onset Date 03/19/24 Current Complaints [place] riding in [employer], got right hip pain History of Current Condition Pt reports that he was trail riding and he got increased pain. His long-term goal is flexibility and strength. He would like to get back to ball room dancing. 10 years ago, he had a partiall achilles tear. He was carrying suitcases up the stairs and it tore. He did not have surgery , he was put in a boot and then had an extensive course of PT. 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 He had a special laser procedure for this 1 year ago. He could not exert himself a lot until he had surgery. He has been biking once a week in the winter and 3x/wk in the summer and he likes downhill skiing as well. Pt with BPH and urinary symptoms and he is currently being treated for this. He has not yet received pelvic floor PT. He has aqua ablation on . He was told not to bike for 6 weeks after and no heavy lifting for two weeks. Pt reports 6/10 lateral and anterior right hip pain and 4/ 10 posterolateral right hip pain over hamstrings. He reports anterior right leg pain feels like the quads. He reports that after second bike ride, he couldn't walk because hip couldn't bear weight. Pt presents with wet vocal tone. 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 Pt denies numbness and tingling. Pt sleeps badly. He has a foam mattress. He has a jasson size bed and sleeps with . He wakes up 2-3x/night to urinate. PT-OP-C Subjective Start: 04/11/24 13:35 Freq: Status: Active Protocol: Document 07/13/24 07:31 MB (Rec: 07/13/24 08:12 MB [id number]) OP-PT Subjective Patient Comments Patient Comments Pt has a history of left patellofemoral syndrome and it has been bothering him with more biking over the past two weeks. PT-OP-G Mobility & Gait Start: 04/11/24 13:35 Freq: Status: Active Protocol: Document 04/12/24 07:25 MB (Rec: 04/12/24 08:02 MB [id number]) OP Gait Assessment Comments Gait Comments Decreased step-length and hip movement right leg with gait, antalgic gait and decreased right hip flexion PT-OP-J Posture/Palpation/Skin Start: 04/11/24 13:35 Freq: Status: Active Protocol: Document 04/12/24 07:25 MB (Rec: 04/12/24 08:02 MB [id number]) Posture Evaluation Comments Posture Comments Standing posture: forward flexion at hips, rounded shoulders, flat spine, mild convexity or hypertrophy to the right in lumbar area, right iliac crest is higher than the left. More overpronation left foot than the right in standing and increased Azael angle on the right compared to left. Anterior tilt pelvis and increased abdominal distention forward. In supine, neither posterior knee/leg touch the mat and this may be d/t a combination of anterior pelvis, knee degenerative changes and hips, pt reports discomfort lateral hip. B SLR grossly 60 deg. PT-OP-K Range of Motion Start: 04/11/24 13:35 Freq: Status: Active Protocol: Document 04/12/24 07:25 MB (Rec: 04/12/24 12:05 MB [id number]) Hip Goniometric Range of Motion Hip ROM Limitations Comments Supine passive hip ER and IR normal on the left and mildly reduced passive IR on the right Scour right is negative Knee Goniometric Range of Motion Knee ROM Limitations Comments Pt may have some degenerative changes in B knees vs anterior tilt pelvis as neither posterior leg touches the legs in supine PT-OP-M Strength Start: 04/11/24 13:35 Freq: Status: Active Protocol: Document 04/12/24 07:25 MB (Rec: 04/12/24 12:05 MB [id number]) Hip Strength Hip Manual Muscle Testing Left Flexion (L2) 5 Normal Extension (S1) 5 Normal Abduction 5 Normal Right Flexion (L2) 4+ Good+ Extension (S1) 5 Normal Abduction 4+ Good+ Comments Right hip lateral pain with MMT Knee Strength Knee Manual Muscle Testing Bilateral Flexion (S2) 5 Normal Extension (L3) 5 Normal Comments Right hip lateral pain with MMT extension Ankle/Foot Strength Ankle and Foot Manual Muscle Testing Bilateral Dorsiflexion (L4) 5 Normal Toe Strength Toe Manual Muscle Testing Left Great Toe Extension 5 Normal Right Great Toe Extension 5 Normal PT-OP-Q Treatments Start: 04/11/24 13:35 Freq: Status: Active Protocol: Document 07/13/24 07:31 MB (Rec: 07/13/24 08:12 MB [id number]) Therapeutic Exercises Other Exercises Trauma Release exercises Other Exercise Name 8 exercises and reps of all: ankle range, calf fatigue, quad fatigue Comments Hamstring and add stretches, back ext, wall sit and hip flexor relaxation Manual Therapy Treatment Consent Patient gave verbal consent for manual Yes treatment Other Other Manual Treatments Pt in left side lying: TrP treatment STM and TrP treatment with right hip rotators and TFL, left lateral gastroc and glute min PT-OP-T Assessment and Plan Start: 04/11/24 13:35 Freq: Status: Active Protocol: Document 07/13/24 07:31 MB (Rec: 07/13/24 08:12 MB [id number]) Physical Therapy Assessment Rehab Potential Rehabilitation Potential Fair Evaluation Complexity Number of Personal Factors/Comorbidities 1-2 Number of Body Systems Impaired 3 Clinical Presentation at Evaluation Evolving Impairments Impairments Activity Tolerance,Balance, Functional Activities, Functional Mobility,Gait,Pain, Posture,ROM,Soft Tissue Mobility,Strength Goals 3 Impairment Lack of PT HEP Adjuster Goal (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 05/24/24: Pt is performing pelvic realignment exercises regularly and stretches not as much 06/15/24: Pt is performing exercises several times a week 07/11/24: Pt is performing exercises several times a week LTG Duration 3 weeks 2 Impairment Decreased right hip strength Adjuster Goal (LTG) Pt will present with 5/5 right hip flexion and abduction strength to improve functional strength, balance and gait. 05/24/24: Left hip flexion and abduction 4+/5; right hip flexion and abduction 4+/5 and improved with feeling it in right hip flexor with testing 06/15/24: Right hip flexion and abduction 5/5 today in hook lying LTG Duration Met goal 1 Impairment LEF score is 39/80 Assisted Goal (LTG) Pt will present with improved LEF score to reflect no more than 20% impairment to improve pain and function. 05/24/24: LEF score reflects 28. 75% impairment and is improved 06/15/24 LEF score reflects 21. 25% impairment and pt reports walking a mile is going better 07/11/24: LEF score reflects 17 .5% impairment LTG Duration Surpassed goal Assessment Summary Assessment Progressed trauma release exercises today and ongoing manual work today. Review core exercises in future treatments. Physical Therapy Plan Frequency and Duration Frequency of Treatment 1-2x/wk Duration of treatment (weeks) 3 Plan of Care Start Date 07/11/24 Plan of Care End Date 07/26/24 Therapeutic Interventions Therapeutic Interventions Balance Training,Canalithic Repositioning,Gait Training, Home Exercise Program,Joint Mobilizations,Manual Therapy, Neuromuscular Re-education, Patient/Caregiver Education, Self-Care/Home Management, Sensory Integration,Soft Tissue Mobilization,Taping, Therapeutic Activities, Therapeutic Exercises Modalities Cold Pack/Ice Massage,Electric Stimulation,Hot Packs, Ultrasound Next Visit Focus/Plan Next Note Type Treatment Note Next Visit Plan Review gentle core progression . Con't manual work, consider progessive standing strengthening for legs, core and posture, mutifidi
--- NOTE | 2024-07-19 08:15 | PT.OTN ---
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 His long-term goal is flexibility and strength. He would like to get back to ball room dancing. 10 years ago, he had a partiall achilles tear. He was carrying suitcases up the stairs and it tore. He did not have surgery , he was put in a boot and then had an extensive course of PT. 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 He had a special laser procedure for this 1 year ago. He could not exert himself a lot until he had surgery. He has been biking once a week in the winter and 3x/wk in the summer and he likes downhill skiing as well. Pt with BPH and urinary symptoms and he is currently being treated for this. He has not yet received pelvic floor PT. He has aqua ablation on . He was told not to bike for 6 weeks after and no heavy lifting for two weeks. Pt reports 6/10 lateral and anterior right hip pain and 4/ 10 posterolateral right hip pain over hamstrings. He reports anterior right leg pain feels like the quads. He reports that after second bike ride, he couldn't walk because hip couldn't bear weight. Pt presents with wet vocal tone. 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 Pt denies numbness and tingling. Pt sleeps badly. He has a foam mattress. He has a jasson size bed and sleeps with . He wakes up 2-3x/night to urinate. PT-OP-C Subjective Start: 04/11/24 13:35 Freq: Status: Active Protocol: Document 07/19/24 07:29 MB (Rec: 07/19/24 08:15 MB [id number]) OP-PT Subjective Patient Comments Patient Comments Pt would like to go through the trauma release exercises again. He traveled to [place] after last visit. He has been walking a lot and even backwards walking. PT-OP-G Mobility & Gait Start: 04/11/24 13:35 Freq: Status: Active Protocol: Document 04/12/24 07:25 MB (Rec: 04/12/24 08:02 MB [id number]) OP Gait Assessment Comments Gait Comments Decreased step-length and hip movement right leg with gait, antalgic gait and decreased right hip flexion PT-OP-J Posture/Palpation/Skin Start: 04/11/24 13:35 Freq: Status: Active Protocol: Document 04/12/24 07:25 MB (Rec: 04/12/24 08:02 MB [id number]) Posture Evaluation Comments Posture Comments Standing posture: forward flexion at hips, rounded shoulders, flat spine, mild convexity or hypertrophy to the right in lumbar area, right iliac crest is higher than the left. More overpronation left foot than the right in standing and increased Azael angle on the right compared to left. Anterior tilt pelvis and increased abdominal distention forward. In supine, neither posterior knee/leg touch the mat and this may be d/t a combination of anterior pelvis, knee degenerative changes and hips, pt reports discomfort lateral hip. B SLR grossly 60 deg. PT-OP-K Range of Motion Start: 04/11/24 13:35 Freq: Status: Active Protocol: Document 04/12/24 07:25 MB (Rec: 04/12/24 12:05 MB [id number]) Hip Goniometric Range of Motion Hip ROM Limitations Comments Supine passive hip ER and IR normal on the left and mildly reduced passive IR on the right Scour right is negative Knee Goniometric Range of Motion Knee ROM Limitations Comments Pt may have some degenerative changes in B knees vs anterior tilt pelvis as neither posterior leg touches the legs in supine PT-OP-M Strength Start: 04/11/24 13:35 Freq: Status: Active Protocol: Document 04/12/24 07:25 MB (Rec: 04/12/24 12:05 MB [id number]) Hip Strength Hip Manual Muscle Testing Left Flexion (L2) 5 Normal Extension (S1) 5 Normal Abduction 5 Normal Right Flexion (L2) 4+ Good+ Extension (S1) 5 Normal Abduction 4+ Good+ Comments Right hip lateral pain with MMT Knee Strength Knee Manual Muscle Testing Bilateral Flexion (S2) 5 Normal Extension (L3) 5 Normal Comments Right hip lateral pain with MMT extension Ankle/Foot Strength Ankle and Foot Manual Muscle Testing Bilateral Dorsiflexion (L4) 5 Normal Toe Strength Toe Manual Muscle Testing Left Great Toe Extension 5 Normal Right Great Toe Extension 5 Normal PT-OP-Q Treatments Start: 04/11/24 13:35 Freq: Status: Active Protocol: Document 07/19/24 07:29 MB (Rec: 07/19/24 08:15 MB [id number]) Therapeutic Exercises Other Exercises Trauma Release exercises Other Exercise Name 8 exercises and reps of all: ankle range, calf fatigue, quad fatigue Comments Hamstring and add stretches, back ext, wall sit and hip flexor relaxation Backwards walking Other Exercise Name Cues for abdominal drawing in and gentle squat Equipment Used LF bands around thighs and ankles Comments Performed today with forward and side and back stepping Manual Therapy Treatment Consent Patient gave verbal consent for manual Yes treatment Other Other Manual Treatments Pt supine: head and legs supported and STM B PFs, quads and vastus lateralis and TrP treatment B vastus lateralis and B gastroc PT-OP-T Assessment and Plan Start: 04/11/24 13:35 Freq: Status: Active Protocol: Document 07/19/24 07:29 MB (Rec: 07/19/24 08:15 MB [id number]) Physical Therapy Assessment Rehab Potential Rehabilitation Potential Fair Evaluation Complexity Number of Personal Factors/Comorbidities 1-2 Number of Body Systems Impaired 3 Clinical Presentation at Evaluation Evolving Impairments Impairments Activity Tolerance,Balance, Functional Activities, Functional Mobility,Gait,Pain, Posture,ROM,Soft Tissue Mobility,Strength Goals 3 Impairment Lack of PT HEP Mcc Goal (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 05/24/24: Pt is performing pelvic realignment exercises regularly and stretches not as much 06/15/24: Pt is performing exercises several times a week 07/11/24: Pt is performing exercises several times a week LTG Duration 3 weeks 2 Impairment Decreased right hip strength Mcc Goal (LTG) Pt will present with 5/5 right hip flexion and abduction strength to improve functional strength, balance and gait. 05/24/24: Left hip flexion and abduction 4+/5; right hip flexion and abduction 4+/5 and improved with feeling it in right hip flexor with testing 06/15/24: Right hip flexion and abduction 5/5 today in hook lying LTG Duration Met goal 1 Impairment LEF score is 39/80 Mcc Goal (LTG) Pt will present with improved LEF score to reflect no more than 20% impairment to improve pain and function. 05/24/24: LEF score reflects 28. 75% impairment and is improved 06/15/24 LEF score reflects 21. 25% impairment and pt reports walking a mile is going better 07/11/24: LEF score reflects 17 .5% impairment LTG Duration Surpassed goal Assessment Summary Assessment Progressed all exercises today as far as strengthening. Review and discharge next treatment. Physical Therapy Plan Frequency and Duration Frequency of Treatment 1-2x/wk Duration of treatment (weeks) 3 Plan of Care Start Date 07/11/24 Plan of Care End Date 07/26/24 Therapeutic Interventions Therapeutic Interventions Balance Training,Canalithic Repositioning,Gait Training, Home Exercise Program,Joint Mobilizations,Manual Therapy, Neuromuscular Re-education, Patient/Caregiver Education, Self-Care/Home Management, Sensory Integration,Soft Tissue Mobilization,Taping, Therapeutic Activities, Therapeutic Exercises Modalities Cold Pack/Ice Massage,Electric Stimulation,Hot Packs, Ultrasound Next Visit Focus/Plan Next Note Type Discharge Summary Next Visit Plan Review and condense exercises
--- NOTE | 2024-07-26 08:51 | PT.OTN ---
Current Diagnoses Pain in right hip (07/26/24) Pain in right thigh (07/26/24) Pain in left thigh (07/26/24) Physical Therapy Treatment Note PT-OP-A Visit Information Start: 04/11/24 13:35 Freq: Status: Active Protocol: Document 07/26/24 08:12 MB (Rec: 07/26/24 08:47 MB [id number]) Out-Patient Physical Therapy Visit Information Visit Information Visit Type Treatment Note Visit Note Last treatment Visit Start Time 08:12 Visit Stop Time 08:50 Visit Number 15 Number of STAFF READINESS OFFICER Visits 0 Evaluation Information Evaluation Date 04/12/24 Precautions Precautions Pt did not have aqua ablation, mild latex allergy PT-OP-B Current Condition Start: 04/11/24 13:35 Freq: Status: Active Protocol: Document 04/12/24 07:25 MB (Rec: 04/12/24 08:02 MB [id number]) Current Condition History of Current Condition Onset Date 03/19/24 Current Complaints [place] [employer], got right hip pain History of Current Condition Pt reports that he was trail riding and he got increased pain. His long-term goal is flexibility and strength. He would like to get back to [employer] dancing. 10 years ago, he had a partiall achilles tear. He was carrying suitcases up the stairs and it tore. He did not have surgery , he was put in a boot and then had an extensive course of PT. 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 He had a special laser procedure for this 1 year ago. He could not exert himself a lot until he had surgery. He has been biking once a week in the winter and 3x/wk in the summer and he likes downhill skiing as well. Pt with BPH and urinary symptoms and he is currently being treated for this. He has not yet received pelvic floor PT. He has aqua ablation on . He was told not to bike for 6 weeks after and no heavy lifting for two weeks. Pt reports 6/10 lateral and anterior right hip pain and 4/ 10 posterolateral right hip pain over hamstrings. He reports anterior right leg pain feels like the quads. He reports that after second bike ride, he couldn't walk because hip couldn't bear weight. Pt presents with wet vocal tone. 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 Pt denies numbness and tingling. Pt sleeps badly. He has a foam mattress. He has a jasson size bed and sleeps with . He wakes up 2-3x/night to urinate. PT-OP-C Subjective Start: 04/11/24 13:35 Freq: Status: Active Protocol: Document 07/26/24 08:12 MB (Rec: 07/26/24 08:47 MB [id number]) OP-PT Subjective Patient Comments Patient Comments Pt has figured out how to manage his pelvic realignment exercises and stretches each day. He is doing his strengthening a couple of times a week. He is biking. Both of his calves are tight, his left hamstring and right hip rotator stretch is tight. PT-OP-G Mobility & Gait Start: 04/11/24 13:35 Freq: Status: Active Protocol: Document 04/12/24 07:25 MB (Rec: 04/12/24 08:02 MB [id number]) OP Gait Assessment Comments Gait Comments Decreased step-length and hip movement right leg with gait, antalgic gait and decreased right hip flexion PT-OP-J Posture/Palpation/Skin Start: 04/11/24 13:35 Freq: Status: Active Protocol: Document 04/12/24 07:25 MB (Rec: 04/12/24 08:02 MB [id number]) Posture Evaluation Comments Posture Comments Standing posture: forward flexion at hips, rounded shoulders, flat spine, mild convexity or hypertrophy to the right in lumbar area, right iliac crest is higher than the left. More overpronation left foot than the right in standing and increased Azael angle on the right compared to left. Anterior tilt pelvis and increased abdominal distention forward. In supine, neither posterior knee/leg touch the mat and this may be d/t a combination of anterior pelvis, knee degenerative changes and hips, pt reports discomfort lateral hip. B SLR grossly 60 deg. PT-OP-K Range of Motion Start: 04/11/24 13:35 Freq: Status: Active Protocol: Document 04/12/24 07:25 MB (Rec: 04/12/24 12:05 MB [id number]) Hip Goniometric Range of Motion Hip ROM Limitations Comments Supine passive hip ER and IR normal on the left and mildly reduced passive IR on the right Scour right is negative Knee Goniometric Range of Motion Knee ROM Limitations Comments Pt may have some degenerative changes in B knees vs anterior tilt pelvis as neither posterior leg touches the legs in supine PT-OP-M Strength Start: 04/11/24 13:35 Freq: Status: Active Protocol: Document 04/12/24 07:25 MB (Rec: 04/12/24 12:05 MB [id number]) Hip Strength Hip Manual Muscle Testing Left Flexion (L2) 5 Normal Extension (S1) 5 Normal Abduction 5 Normal Right Flexion (L2) 4+ Good+ Extension (S1) 5 Normal Abduction 4+ Good+ Comments Right hip lateral pain with MMT Knee Strength Knee Manual Muscle Testing Bilateral Flexion (S2) 5 Normal Extension (L3) 5 Normal Comments Right hip lateral pain with MMT extension Ankle/Foot Strength Ankle and Foot Manual Muscle Testing Bilateral Dorsiflexion (L4) 5 Normal Toe Strength Toe Manual Muscle Testing Left Great Toe Extension 5 Normal Right Great Toe Extension 5 Normal PT-OP-Q Treatments Start: 04/11/24 13:35 Freq: Status: Active Protocol: Document 07/26/24 08:12 MB (Rec: 07/26/24 08:47 MB [id number]) Therapeutic Exercises Other Exercises Reviewed HEP on progress note date Comments Reviewed exercises in preparation for d/c today Manual Therapy Treatment Consent Patient gave verbal consent for manual Yes treatment Other Other Manual Treatments Pt prone: STM and MWM B gastroc and soleus and TrP treatment B medial and lateral gastroc, left hamstrings TrP treatment, right hip rotator and glute med TrP treatment Self-Care/Home Management Treatment Education Other Education Ongoing ed about hydration, changing positions during the work day, benefits of standing table, overall goal to move more and cross train, sitting options as far as cushions for flights PT-OP-T Assessment and Plan Start: 04/11/24 13:35 Freq: Status: Active Protocol: Document 07/26/24 08:12 MB (Rec: 07/26/24 08:47 MB [id number]) Physical Therapy Assessment Rehab Potential Rehabilitation Potential Fair Evaluation Complexity Number of Personal Factors/Comorbidities 1-2 Number of Body Systems Impaired 3 Clinical Presentation at Evaluation Evolving Impairments Impairments Activity Tolerance,Balance, Functional Activities, Functional Mobility,Gait,Pain, Posture,ROM,Soft Tissue Mobility,Strength Goals 3 Impairment Lack of PT HEP [employer] Sergeant Goal (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 05/24/24: Pt is performing pelvic realignment exercises regularly and stretches not as much 06/15/24: Pt is performing exercises several times a week 07/11/24: Pt is performing exercises several times a week 07/26/24 Pt has figured out his exercise routine and he can pick and choose what works best for him LTG Duration Met 2 Impairment Decreased right hip strength Half-Way Goal (LTG) Pt will present with 5/5 right hip flexion and abduction strength to improve functional strength, balance and gait. 05/24/24: Left hip flexion and abduction 4+/5; right hip flexion and abduction 4+/5 and improved with feeling it in right hip flexor with testing 06/15/24: Right hip flexion and abduction 5/5 today in hook lying LTG Duration Met goal 1 Impairment LEF score is 39/80 [employer] Sergeant Goal (LTG) Pt will present with improved LEF score to reflect no more than 20% impairment to improve pain and function. 05/24/24: LEF score reflects 28. 75% impairment and is improved 06/15/24 LEF score reflects 21. 25% impairment and pt reports walking a mile is going better 07/11/24: LEF score reflects 17 .5% impairment LTG Duration Surpassed goal Assessment Summary Assessment Pt has met all PT goals and is ready for d/c. He may benefit from pelvic floor rehab in the future given prostate issues.
== END 2024-08-02 08:12 | disposition home or self-care (01) ==
LOC: PHYS 08:15
PROVIDERS: Family Provider Family Medicine; PCP Family Medicine; Referring Provider Family Medicine; Visit Provider Family Medicine
DX: M25.551 Pain in right hip (principal); M79.651 Pain in right thigh; M79.652 Pain in left thigh
CPT/HCPCS: 97110; 97140; 97161; 97535

== ENCOUNTER → 2024-09-26 07:34 | Outpatient (CLI) | payer OTHER, SELFPAY ==
[2024-09-26 07:51] LABS: Add Manual Diff / Slide Review NO; Basophils Absolute Auto 100 /uL (0-100); Basophils Percent Auto 0.6 % (0-2); Eosinophils Absolute Auto 100 /uL (0-450); Eosinophils Percent Auto 1.3 % (2-4); Hematocrit 47.6 % (41-53); Hemoglobin 16.4 g/dL (13.5-17.5); Lymphocytes Absolute Auto 1700 /uL (1100-4500); Lymphocytes Percent Auto 16.9 % (25-40); Mean Corpuscular HGB Conc 34.5 % (30-36); Mean Corpuscular Hemoglobin 31.2 PG (26-34); Mean Corpuscular Volume 90.5 fL (80-100); Monocytes Absolute Auto 800 /uL (0-900); Monocytes Percent Auto 7.8 % (3-14); Neutrophils Absolute Auto 7200 /uL (1500-7000); Neutrophils Percent Auto 73.4 % (50-75); Platelet Count 287 X10^3/uL (150-400); Red Blood Cell Count 5.26 X10^6/uL (4.5-5.9); Red Cell Distribution Width 13.9 % (11.6-14.8); White Blood Cell Count 9.8 X10^3/uL (4.5-11.0)
[2024-09-26 08:08] LABS: Hemoglobin A1C% w Est Avg Glu 5.6 % (4.0-6.0)
[2024-09-26 08:16] LABS: Alanine Aminotransferase 25 IU/L (<50); Albumin 4.1 g/dL (3.5-5.0); Albumin Globulin Ratio 1.6 (1.0-2.8); Alkaline Phosphatase 70 U/L (38-126); Aspartate Aminotransferase 23 IU/L (17-59); BUN Creatinine Ratio 19.5 (6-22); Bilirubin Total 0.9 mg/dL (0.2-1.3); Blood Urea Nitrogen 17 mg/dL (9-20); Calcium 9.7 mg/dL (8.4-10.2); Carbon Dioxide 25 mmol/L (22-32); Chloride 102 mmol/L (98-107); Cholesterol 183 mg/dL (140-199); Estimated Glomerular Filt Rate > 60 mL/min (>60); Globulin 2.5 g/dL (1.7-4.1); Glucose 109 mg/dL (80-110); HDL Cholesterol 52 mg/dL (40-60); HEMOLYSIS < 15 (0-50); LDL Cholesterol Calculated 115 mg/dL (<100); Potassium 4.3 mmol/L (3.4-5.1); Sodium 134 mmol/L (137-145); Total Protein 6.6 g/dL (6.3-8.2); Triglycerides 81 mg/dL (35-150)
[2024-09-26 08:41] LABS: TSH w/ Reflex to FT4 1.34 uIU/mL (0.47-4.68)
== END ==
PROVIDERS: Family Provider Family Medicine; PCP Family Medicine; Referring Provider Family Medicine; Visit Provider Family Medicine
DX: Z00.00 Encounter for general adult medical examination without abnormal findings (principal); Z12.5 Encounter for screening for malignant neoplasm of prostate; R73.03 Prediabetes; I10 Essential (primary) hypertension; N40.1 Benign prostatic hyperplasia with lower urinary tract symptoms; R35.1 Nocturia
CPT/HCPCS: 36415; 80053; 80061; 83036; 84443; 85025; G0103

== ENCOUNTER → 2024-12-17 10:17 | Outpatient (CLI) | payer OTHER, SELFPAY ==
[2024-12-17 11:00] LABS: Hemoglobin A1C% w Est Avg Glu 5.6 % (4.0-6.0)
[2024-12-17 11:10] LABS: Alanine Aminotransferase 35 IU/L (<50); Albumin 4.1 g/dL (3.5-5.0); Albumin Globulin Ratio 1.7 (1.0-2.8); Alkaline Phosphatase 59 U/L (38-126); Aspartate Aminotransferase 27 IU/L (17-59); BUN Creatinine Ratio 21.9 (6-22); Bilirubin Total 0.8 mg/dL (0.2-1.3); Blood Urea Nitrogen 23 mg/dL (9-20); Calcium 9.5 mg/dL (8.4-10.2); Carbon Dioxide 29 mmol/L (22-32); Chloride 103 mmol/L (98-107); Estimated Glomerular Filt Rate > 60 mL/min (>60); Globulin 2.4 g/dL (1.7-4.1); Glucose 144 mg/dL (80-110); HEMOLYSIS < 15 (0-50); Potassium 4.2 mmol/L (3.4-5.1); Sodium 140 mmol/L (137-145); Total Protein 6.5 g/dL (6.3-8.2)
== END ==
PROVIDERS: Family Provider Family Medicine; PCP Family Medicine; Referring Provider Family Medicine; Visit Provider Family Medicine
DX: I10 Essential (primary) hypertension (principal); Z13.1 Encounter for screening for diabetes mellitus
CPT/HCPCS: 36415; 80053; 83036

== ENCOUNTER → 2025-02-28 13:58 | Outpatient (CLI) | payer OTHER, SELFPAY ==
--- NOTE | 2025-03-01 10:59 | DIAB.MNT ---
Initial Diabetes Medical Nutrition Therapy Assessment Name: Efrain Mixon (Dave) Date:02/28/25 Time:2pm Dx: Type II Diabetes Provider: Danny Marti 69 y M referred to dietitian for T2DM, obesity, hyperglycemia and BMI 40.0-44.9 Pt wanting help with weight management. Reports GLP1 options have been denied by insurance, has follow up with PCP to discuss weight loss medication options. Would like to optimize nutrition and activity as well. Reports hx of achilles injury that decreased activity level resulting in weight gain, then COVID occurred, which resulted in more weight gain. Injury has healed and pt able to be active but pt also reports job has become increasing stressful and working longer hours making it difficult to active. However, does note with weather warming/longer days, he feels he will be able to get back into doing biking 5 days a week. Pt questioned calories in alcohol, but overall would like to keep 1-2 drinks 3-4x/wk. Diet Recall: 630a-[employer] ham and cheese croissant 2x/wk OR 1/2c oatmeal with serving of raisins 2x/wk OR 1/2 c [place] yogurt and no sugar keto nut and seed granola w/ 1/2 c blueberries 2x/wk 1p-egg salad sandwich or pb sandwich on ww bread OR leftovers 6p- 3-4x/wk has alocholic beverage martini cocktail or 3 oz vodka and ice 7p- 8oz chx, or fish 2x/wk or red meat 2x/wk w/ nonstarchy veg (green beans 1cup), and either 1 c rice/pasta or ww bread 1 slice with 1-2 tsp butter 24 oz black coffee in morning no sugar sweetened beverages Anthropometrics: Ht: 6ft 1in Wt: 295 lb Physical Activity: 2x/wk bike riding on trails 1 hr Self-Monitoring Blood Glucose: pt has meter, not currently taking BG Diabetes Medications: none at this time Pertinent Labs: A1c 5.6%, FBG 144, LDL 115 Past Medical History: (Last Reviewed 02/01/25 @ 09:40 by Danny Marti DO) Achilles tendinitis of left lower extremity Benign prostatic hyperplasia with lower urinary tract symptoms BPH (benign prostatic hyperplasia) Chondromalacia, patella Chronic stridor Colon polyps Colonoscopy 2023 History of colon polyps History of IHSS Hyperglycemia Hypertension Left knee pain Morbid obesity with BMI of 40.0-44.9, adult Nocturia more than twice per night Secondhand smoke exposure Skin abnormalities Slow urinary stream Sprain of right hip Type 2 diabetes mellitus associated with morbid obesity Weak urinary stream Well adult exam Nutrition Rx: Carbohydrates: 45-60 g at meals, 15-30 g at snacks Nutrition Diagnosis: -Obesity r/t unintentional weight gain after injury, pandemic, and busy/stressful work schedule aeb BMI >30.0 Intervention: This participant was very receptive. Provided appropriate educational handouts. Discussed the following topics: Completed intake assessment. Discussed barriers to care. HgA1c, its correlation to blood glucose numbers, and rationale for goal Importance of self-monitoring, how often, and when to check. Suggested checking at different times to evaluate meals Plate Method, impact of macronutrients on blood sugar, meal timing, carbohydrate counting, pairing macronutrients and spreading out carbohydrates for better blood glucose management Recommended servings for carbohydrates at meals and snacks Heart health nutrition, LDL cholesterol and correlation with nutrition Brainstormed appropriate meal plan based on food preferences Role of physical activity and following provider guidelines for safety Created SMART goals for patient self-care and success. Goals: Have oats or yogurt breakfast over [employer] sandwich to reduce saturated fat intake Add in 2 fruit/veggie servings into day (i.e 1 c carrots at lunch, fruit for snack) Increase biking to 3-5 days Try testing BG using meter, discussed goals for FBG and postprandial Pt confident in meeting above goals, f/u in 2 months after PCP appt regarding medications and to check in on goals. Follow-up: RDN follow-up in 2 months Whitley Farfan Registered Dietitian P: [phone] Thank you for this referral
== END ==
LOC: DIET 13:59
PROVIDERS: Family Provider Family Medicine; PCP Family Medicine; Referring Provider Family Medicine
DX: E11.65 Type 2 diabetes mellitus with hyperglycemia (principal); E66.9 Obesity, unspecified; Z68.41 Body mass index [BMI] 40.0-44.9, adult; Z71.3 Dietary counseling and surveillance
CPT/HCPCS: 97802

== ENCOUNTER → 2025-03-07 15:39 | Outpatient (CLI) | payer OTHER, SELFPAY ==
--- NOTE | 2025-03-07 15:46 | EKG_ITS ---
[facility] [address] [place] [address] Test Date: 2025-03-07 Pat Name: Efrain Mixon Department: [facility] Room: Gender: Male Blunger Loader: ZECHARIAH : 1955 Requested By: Order Number: [id number] Reading MD: Guy Guerra MD Measurements Intervals [place] Rate: 81 P: -4 RI: 184 QRS: 3 QRSD: 118 T: 40 QT: 370 QTc: 429 Interpretive Statements Sinus rhythm with frequent premature ventricular complexes Incomplete right bundle branch block NO PRIOR TRACING Electronically Signed On 03-08-2025 6:57:34 PDT by Guy Guerra MD
== END ==
PROVIDERS: Family Provider Family Medicine; PCP Family Medicine; Referring Provider Family Medicine; Visit Provider Family Medicine
DX: Z01.810 Encounter for preprocedural cardiovascular examination (principal)
CPT/HCPCS: 93005

== ENCOUNTER → 2025-03-08 10:58 | Outpatient (CLI) | payer OTHER, SELFPAY ==
[2025-03-08 12:23] LABS: Hemoglobin A1C% w Est Avg Glu 5.3 % (4.0-6.0)
[2025-03-08 12:41] LABS: Alanine Aminotransferase 33 IU/L (<50); Albumin 4.3 g/dL (3.5-5.0); Albumin Globulin Ratio 1.8 (1.0-2.8); Alkaline Phosphatase 67 U/L (38-126); Aspartate Aminotransferase 29 IU/L (17-59); BUN Creatinine Ratio 22.5 (6-22); Blood Urea Nitrogen 20 mg/dL (9-20); Calcium 9.2 mg/dL (8.4-10.2); Carbon Dioxide 27 mmol/L (22-32); Chloride 100 mmol/L (98-107); Cholesterol 188 mg/dL (140-199); Estimated Glomerular Filt Rate > 60 mL/min (>60); Globulin 2.4 g/dL (1.7-4.1); Glucose 96 mg/dL (70-99); HDL Cholesterol 51 mg/dL (40-60); HEMOLYSIS < 15 (0-50); LDL Cholesterol Calculated 122 mg/dL (<100); Potassium 4.4 mmol/L (3.4-5.1); Sodium 135 mmol/L (137-145); Total Protein 6.7 g/dL (6.3-8.2); Triglycerides 73 mg/dL (35-150)
== END ==
PROVIDERS: Family Provider Family Medicine; PCP Family Medicine; Referring Provider Family Medicine; Visit Provider Family Medicine
DX: E11.69 Type 2 diabetes mellitus with other specified complication (principal); E66.01 Morbid (severe) obesity due to excess calories; I10 Essential (primary) hypertension; E11.65 Type 2 diabetes mellitus with hyperglycemia
CPT/HCPCS: 36415; 80053; 80061; 83036

== ENCOUNTER → 2025-05-09 15:53 | Outpatient (CLI) | payer OTHER, SELFPAY ==
--- NOTE | 2025-05-11 12:23 | DIAB.MNTFU ---
Follow-up Diabetes Medical Nutrition Therapy Assessment Name: Efrain Mixon (Dave) Date:05/09/25 Time:4pm Dx: Type II Diabetes Provider: Danny Matri 69 y M referred to dietitian for T2DM, obesity, hyperglycemia and BMI 40.0-44.9. Pt able to get semaglutide 0.25 mg from pharmacy and has been on it x 6 weeks with 1-2 lb weight loss per week. Plans to stay on that dose until weight plateaus.Has been helpful in reducing food noise, leading to smaller portions. Still maintains having 3 meals per day. No GI symptoms reported with semaglutide. Diet Recall: B-angolan yogurt 1/2-2/3 c and 1/2 c berries L- Leftovers or egg salad sandwich on whole wheat 2 sl or sometimes pure protein bar D-homemade dinner, 4 oz chicken/meat, 1 c carb, 1 c veg Anthropometrics: Ht: 6 ft 1 in Wt: 309 lb Physical Activity: bike 2-3x/wk Self-Monitoring Blood Glucose: none at this time, has meter as needed Diabetes Medications: semaglutide 0.25 mg Pertinent Labs: 5.3% A1c, FBG 96, LDL 122 Past Medical History: (Last Reviewed 04/18/25 @ 15:00 by Danny Marti DO) Achilles tendinitis of left lower extremity Benign prostatic hyperplasia with lower urinary tract symptoms Borderline hyperlipidemia BPH (benign prostatic hyperplasia) Chondromalacia, patella Chronic stridor Colon polyps Colonoscopy 2022 History of colon polyps History of IHSS Hyperglycemia Hypertension Left knee pain Morbid obesity with BMI of 40.0-44.9, adult Nocturia more than twice per night Preoperative cardiovascular examination Secondhand smoke exposure Skin abnormalities Slow urinary stream Sprain of right hip Type 2 diabetes mellitus associated with morbid obesity Weak urinary stream Well adult exam Nutrition Rx: Carbohydrates: 45-60 g at meals, 15-30 g at snacks Nutrition Diagnosis: (Improved) Altered nutrition related labs values (A1c% and LDL) r/t changes in lifestyle after injury, pandemic, and busy/stressful work aeb FBG 144 and LDL 122 Intervention: This participant was very receptive. Provided appropriate educational handouts. Discussed the following topics: Heart health nutrition: fats, fiber, and sodium Physical activity plan and progress Maintaining consistent intakes with protein sources, avoid skipping meals to avoid >2 lb weight loss per week Created SMART goals for patient self-care and success. Goals: Continue to meet activity goals 30 g fiber daily- additional veg/fruit source (i.e 1 c carrots at lunch, fruit for snack) Avoid skipping meals Follow-up: As needed NORMAN Stinson, RD Clinical Dietitian P: [phone] Thank you for this referral
== END ==
PROVIDERS: Family Provider Family Medicine; PCP Family Medicine
DX: E11.65 Type 2 diabetes mellitus with hyperglycemia (principal); E66.9 Obesity, unspecified; Z68.41 Body mass index [BMI] 40.0-44.9, adult; Z71.3 Dietary counseling and surveillance; Z79.85 Long-term (current) use of injectable non-insulin antidiabetic drugs
CPT/HCPCS: 97803

== ENCOUNTER → 2025-06-20 07:52 | Outpatient (CLI) | payer OTHER, SELFPAY ==
[2025-06-20 08:44] LABS: Hemoglobin A1C% w Est Avg Glu 5.6 % (4.0-6.0)
[2025-06-20 11:27] LABS: Alanine Aminotransferase 28 IU/L (<50); Albumin 4.1 g/dL (3.5-5.0); Albumin Globulin Ratio 1.6 (1.0-2.8); Alkaline Phosphatase 66 U/L (38-126); Blood Urea Nitrogen 19 mg/dL (9-20); Calcium 9.4 mg/dL (8.4-10.2); Carbon Dioxide 24 mmol/L (22-32); Chloride 102 mmol/L (98-107); Cholesterol 170 mg/dL (140-199); Estimated Glomerular Filt Rate > 60 mL/min (>60); Globulin 2.5 g/dL (1.7-4.1); Glucose 100 mg/dL (70-99); HDL Cholesterol 45 mg/dL (40-60); HEMOLYSIS 27 (0-50); Potassium 4.3 mmol/L (3.4-5.1); Sodium 135 mmol/L (137-145); Total Protein 6.6 g/dL (6.3-8.2); Triglycerides 75 mg/dL (35-150)
== END ==
PROVIDERS: Family Provider Family Medicine; PCP Family Medicine; Referring Provider Family Medicine; Visit Provider Family Medicine
DX: E11.69 Type 2 diabetes mellitus with other specified complication (principal); E66.01 Morbid (severe) obesity due to excess calories; E78.5 Hyperlipidemia, unspecified
CPT/HCPCS: 36415; 80053; 80061; 83036

== ENCOUNTER → 2025-07-30 10:36 | Outpatient (CLI) | payer OTHER, SELFPAY ==
[2025-07-30 11:24] LABS: Microalbumi Creatinin Ratio Ur 32.0 ug/mg CR (<30)
== END ==
PROVIDERS: Family Provider Family Medicine; PCP Family Medicine; Visit Provider Nurse Practitioner Family
DX: R30.0 Dysuria (principal); E11.69 Type 2 diabetes mellitus with other specified complication; E66.01 Morbid (severe) obesity due to excess calories; I10 Essential (primary) hypertension; E11.65 Type 2 diabetes mellitus with hyperglycemia
CPT/HCPCS: 82043; 82570; 87077; 87086; 87186

== ENCOUNTER → 2025-09-01 12:59 | Outpatient (CLI) | payer OTHER, SELFPAY | PROVIDERS: Family Provider Family Medicine; PCP Family Medicine; Visit Provider Chiropractor | DX: R30.0 Dysuria (principal) | CPT/HCPCS: 87086 ==